=== PATIENT | female | born 1970 | race Two or more races ===

== ENCOUNTER 2024-12-19 08:28 | Emergency (ER) | payer MEDICAID, SELFPAY ==
[2024-12-19 08:52] VITALS: BP 116/44; PULSE 58; RESP 20; TEMP 36.3; O2SAT 98; BMI 20.9
[2024-12-19 09:22] LABS: Amphetamine Screen Urine Not Detected (Not Detect); Barbiturates, Urine Not Detected (Not Detect); Benzodiazepines Screen Urine Not Detected (Not Detect); Buprenorphine Scr Not Detected (Not Detect); Cannabinoid Screen Urine Not Detected (Not Detect); Cocaine Screen Urine Not Detected (Not Detect); Fentanyl, urine Not Detected (Not Detect); Methadone Screen, Urine Positive (Not Detect); Opiate Screen Urine Not Detected (Not Detect); Oxycodone Screen Urine Not Detected (Not Detect); Phencyclidine Screen Urine Not Detected (Not Detect)
--- OUTSIDE RECORDS SUMMARY | 2024-12-19 09:51 | XMS_ITS | Clinical Summary ---
Author Organization [facility] Address [address] [place] [address] Care Team Providers Care Computer System Technician Name Role Phone Velia Jones [facility] Primary Care Provider Source Comments PLEASE NOTE, if this patient is a minor, it may be UNLAWFUL to discuss sensitive information that is contained in these records (such as FAMILY PLANNING, MENTAL HEALTH or SUBSTANCE ABUSE) with the minor patient's parent or other person without the patient's specific authorization.[facility] Allergies Active Allergy Reactions Criticality Noted Date Comments Pollen 02/10/2023 Other reaction(s): unknown Medications ferrous sulfate 325 mg (65 mg iron) EC tabletIndication s:Anemia, unspecified type Take 1 Tablet by mouth once daily with breakfast 90 Tablet 1 4 Active ascorbic acid, vitamin C, (VITAMIN C) 1,000 mg tabletIndication s:Low serum vitamin C Take 1 Tablet by mouth once daily 90 Tablet 3 4 Active ergocalciferol (VITAMIN D-2) 1,250 mcg (50,000 unit) capsuleIndicatio ns:Vitamin D deficiency Take 1 Capsule by mouth once a week 12 Capsule 3 4 Active Hospital, Clinic, or Other Facility Administered Medication Ordered Dose Route Frequency Start Date End Date Status VivitroL 380 mg ER suspension (naltrexone microspheres)Indications: Alcohol use disorder, moderate, dependence ([facility]) 380 mg IM Every 30 days 03/23/2020 Active Active Problems Problem Noted Date Diagnosed Date History of MRSA infection 12/05/2024 COPD (chronic obstructive pulmonary disease) ( C-CMS) 07/05/2023 Scabies 07/05/2023 Opioid use disorder, moderat e, on maintenance therapy ([facility]) 05/15/2020 Cocaine abuse ([facility]) 12/18/2014 Alcohol use disorder, severe ([facility]) 5 Hepatitis C, chronic, genotype 2b, treatment lizzeth ve 12/18/2014 Hx of cholecystectomy Opioid use disorder History of incarceration Alcohol abuse: quit 03/2020 Resolved Problems Problem Noted Date Diagnosed Date Resolved Date Alcohol use disorder, modera te, dependence ([facility]) 01/06/2020 05/15/2020 Opioid use disorder, moderat e, in sustained remission, on maintenance therapy ([facility]) 12/18/2014 05/15/2020 Encounters Date Type Department Care Team Description 12/05/2024 10:00 AM EDT Office Visit [address] [phone] Angeline Hernandez PA-C Hospital discharge follow-up (Primary Dx); Routine screening for STI (sexually transmitted infection); Vitamin D deficiency; History of MRSA infection; Dyslipidemia from Last 3 Months Immunizations Immunization Administration Dates Next Due INFLUENZA, SEASONAL, INJECTABLE 06/21/2011 TDAP 02/10/2023 ZOSTER VACCINE, RECOMBINANT ([facility]) 3 Family History Medical History Relation Name Comments Emphysema Father from smoking Heart Problems Father Diabetes insipidus Mother No Known Problems Sister Relation Name Status Comments Father Mother Sister Social History Tobacco Use Types Packs/Day Years Used Date Smoking Tobacco: Former Cigarettes 1 10 Passive Smoke Exposure: Never Smokeless Tobacco: Never Tobacco Cessation:Counseling Given: No Alcohol Use Standard Drinks/Week Comments Not Currently 0 (1 standard drink = 0.6 oz pur e alcohol) quit 03/2020 Social Connections Answer Date Recorded Connectedness 1 12/05/2024 Financial Resource Strain Answer Date R ecorded Financial Resource Strain 2 2024 Stress Answer Date Recorded Stress 1 12/05/2024 Physical Activity Answer Date Recorded Physical Activity 0 10/20/2021 Food Insecurity Answer Date Recorded Food 1 12/05/2024 Transportation Needs Answer Date Record ed Transportation 1 12/05/2024 Housing Stability Answer Date Recorded Housing 2 12/05/2024 Safety and Environment Answer Date Chris rded Safety 0 10/20/2021 Utilities Answer Date Recorded Utilities 2 12/05/2024 Employment Answer Date Recorded Stress 0 10/20/2021 Comments No Sex and Gender Information Value Date Recorded Sex Assigned at Female 01/07/2020 12:41 PM PDT Legal Sex Female 6:23 AM PDT Gender Identity Female 01/07/2020 12:41 PM PDT Sexual Orientation Choose not to disclose 2022 6:49 AM PDT Sexual Orientation Don't know 02/26/2023 6: 49 AM PDT Last Filed Vital Signs Vital Sign Reading Time Taken Comments Blood Pressure 100/70 12/05/2024 10:04 AM EDT Pulse 83 12/05/2024 10:04 AM EDT Temperature 36.2 ??C (97.1 ??F) 12/05/2024 1 0:04 AM EDT Respiratory Rate 16 12/05/2024 10:0 4 AM EDT Oxygen Saturation 99% 12/05/2024 10: 04 AM EDT Inhaled Oxygen Concentration - - Weight 51.1 kg (112 lb 11.2 oz) 025 10:04 AM EDT Height 157.5 cm (5' 2 ) 12/05/2024 10:0 4 AM EDT Body Mass Index 20.61 12/05/2024 10:04 AM EDT Plan of Treatment Health Maintenance Due Date Last Done Comments Anxiety Screening 1969 Imm-Pneumococcal (1 of 2 - PCV) 1988 CT Colonography 2014 Colonoscopy 2014 Colorectal Cancer Screening 2014 FIT/gFOBT 2014 Fecal DNA 2014 Flexible Sigmoidoscopy 2014 Imm-Zoster, Recombinant (2 of 2) 04/07/2023 02/11/20 23 [id number] ( season) 2024 10/04/2022, 11/19/2021, 04/05/2021, Additional history exists Imm-Influenza (#1) 2024 06/21/2011 Depression Monitoring 03/07/2025 12/05/2024 , 02/10/2023, 10/20/2021, Additional history exists HIV Screening 12/05/2025 12/05/2024, 02/16, 01/07/2020 Hypertension Screening (#1) 12/05/2025 Syphilis Screening 12/05/2025 12/05/2024, 01/07/2020 Tobacco Screening 12/05/2025 12/05/2024 Diabetes Screening 12/06/2027 12/05/2024, 0 10/29/2024, 10/27/2024, Additional history exists Lipid Screening 12/05/2029 12/05/2024 Imm-DTaP/Tdap/Td (2 - Td or Tdap) 02/10/2033 023 Hepatitis B Screening Completed 02/27/2023, 020 Alcohol and Drug Screen Completed 12/06/19, 02/10/2023, 12/20/2019 Imm-Hepatitis A Discontinued Procedures Procedure Name Priority Date/Time Associated Diagnosis Comments OTHER ORDERS SCANNED DOCUMENT 12/16/2024 3:00 AM EDT RPR (DIAGNOSIS) WITH REFLEX TO TITER AND CONFIRMATORY TESTING Routine 12/05/2024 10:38 AM EDT Routine screening for STI (sexually transmitted infection) HIV 1/2 AG & AB W/RFLX (4TH GEN) Routine 12/05/2024 10:38 AM EDT Routine screening for STI (sexually transmitted infection) LIPID PANEL Routine 12/05/2024 10:38 AM EDT Dyslipidemia COMPREHENSIVE METABOLIC PANEL Routine 12/05/2024 10:38 AM EDT History of MRSA infection BLOOD COUNT COMPLETE AUTO&AUTO DIFRNTL WBC Routine 12/05/2024 10:38 AM EDT History of MRSA infection OTHER ORDERS SCANNED DOCUMENT 12/05/2024 3:00 AM EDT OTHER ORDERS SCANNED DOCUMENT 11/12/2024 3:00 AM EST HEALTH HISTORY SCANNED DOCUMENT 10/17/2024 3:00 AM EST HEPATITIS B SURFACE AG, EIA WITH REFLEX CONFIRM Routine 02/27/2023 2:14 PM EDT Chronic hepatitis C without hepatic coma (HCC-CMS) from Last 3 Months or Most Recently Relevant to Health Maintenance Results * OTHER ORDERS SCANNED DOCUMENT (12/16/2024 3:00 AM EDT) Only the most recent of3 resultswithin the time period is included. 12/16/2024 3:00 AM EDT Velia Jones DECISION UNIT RN SCAN OTHER ORDERS Final Result * RPR (DIAGNOSIS) WITH REFLEX TO TITER AND CONFIRMATORY TESTING (12/05/2024 10:38 AM EDT) RPR (DX) W/REFL TITER AND CONFIRMATORY TESTING NON-REACT SADIE NON-REACT SADIE [facility] Comment: No laboratory evidence of syphilis. If recent exposure is suspected, submit a new sample in 2-4 weeks. Serum Blood / Unknown 12/05/2024 1 0:38 AM EDT 12/05/2024 10:39 AM EDT Narrative [facility] - 12/06/2024 12:24 PM EDT FASTING:NO Angeline Hernandez PA-C LAB - BLOOD DRAW Final Resul t [facility] [address] [place] [id number], [facility] [address] [address] * HIV 1/2 AG & AB W/RFLX (4TH GEN) (12/05/2024 10:38 AM EDT) HIV AG/AB, 4TH GEN NON-REAC TIVE NON-REAC TIVE [facility] Comment: HIV-1 antigen and HIV-1/HIV-2 antibodies were not detected. There is no laboratory evidence of HIV infection. PLEASE NOTE: This information has been disclosed to you from records whose confidentiality may be protected by state law. ??If your state requires such protection, then the state law prohibits you from making any further disclosure of the information without the specific written consent of the person to whom it pertains, or as otherwise permitted by law. A general authorization for the release of medical or other information is NOT sufficient for this purpose. ?? For additional information please refer to http://education.EximSoft-Trianz/faq/WQE687 (This link is being provided for informational/ educational purposes only.) The performance of this assay has not been clinically validated in patients less than 2 years old. Blood Blood / Unknown 12/05/2024 1 0:38 AM EDT 12/05/2024 10:39 AM EDT Narrative [employer] [facility] - 12/06/2024 12:24 PM EDT FASTING:NO Angeline Hernandez PA-C LAB - BLOOD DRAW Final Resul t [facility] [address] [address], [facility] [address] [place] [address] * BLOOD COUNT COMPLETE AUTO&AUTO DIFRNTL WBC (12/05/2024 10:38 AM EDT) WHITE BLOOD CELL COUNT 6.3 3.8 - 10.8 Thousand/ uL [facility] RED BLOOD CELL COUNT 4.47 3.80 - 5.10 Million/u L [facility] HEMOGLOBIN 12.7 11.7 - 15.5 g/dL [facility] HEMATOCRIT 38.7 35.0 - 45.0 % [facility] MCV 86.6 80.0 - 100.0 fL [facility] MCH 28.4 27.0 - 33.0 pg [facility] [place] [employer] MCHC 32.8 32.0 - 36.0 g/dL [facility] Comment: For adults, a slight decrease in the calculated MCHC value (in the range of 30 to 32 g/dL) is most likely not clinically significant; however, it should be interpreted with caution in correlation with other red cell parameters and the patient's clinical condition. RDW 14.3 11.0 - 15.0 % [facility] PLATELET COUNT 228 140 - 400 Thousand/ uL [facility] MPV 10.5 7.5 - 12.5 fL [facility] ABSOLUTE NEUTROPHILS 4,171 1,500 - 7,800 cells/uL [facility] ABSOLUTE LYMPHOCYTES 1,342 850 - 3,900 cells/uL [facility] ABSOLUTE MONOCYTES 611 200 - 950 cells/uL [facility] ABSOLUTE EOSINOPHILS 139 15 - 500 cells/uL [facility] ABSOLUTE BASOPHILS 38 0 - 200 cells/uL [facility] NEUTROPHILS PCT 66.2 % [facility] LYMPHOCYTES 21.3 % [facility] MONOCYTES 9.7 % [facility] EOSINOPHILS 2.2 % [facility] BASOPHILS 0.6 % [facility] Blood Blood / Unknown 12/05/2024 1 0:38 AM EDT 12/05/2024 10:39 AM EDT Narrative [employer] [facility] - 12/06/2024 12:24 PM EDT FASTING:NO Angeline Hernandez PA-C LAB - BLOOD DRAW Edited Resu lt - Final [employer] [address] [address], [facility] [address] [address] * (ABNORMAL) LIPID PANEL (12/05/2024 10:38 AM EDT) CHOLESTEROL, TOTAL 154 <200 mg/dL [facility] HDL CHOLESTEROL 47(L) > OR = 50 mg/dL [facility] TRIGLYCERIDES 167(H) <150 mg/dL [facility] LDL-CHOLESTEROL 80 99 mg/dL (calc) [facility] Comment: Reference range: <100 Desirable range <100 mg/dL for primary prevention; ?? <70 mg/dL for patients with CHD or diabetic patients with > or = 2 CHD risk factors. LDL-C is now calculated using the Dwayne-Mercy calculation, which is a validated novel method providing better accuracy than the Friedewald equation in the estimation of LDL-C. Dwayne TELLEZ et al. BHUPINDER. 2013;310(19): 9637-8336 (http://education.Counsyl.Juno [employer]/faq/CBC247) CHOL/HDLC RATIO 3.3 <5.0 (calc) [facility] NON-HDL CHOLESTEROL 107 <130 mg/dL (calc) [facility] Comment: For patients with diabetes plus 1 major ASCVD risk factor, treating to a non-HDL-C goal of <100 mg/dL (LDL-C of <70 mg/dL) is considered a therapeutic option. Blood Blood / Unknown 12/05/2024 1 0:38 AM EDT 12/05/2024 10:39 AM EDT Narrative [employer] [facility] - 12/06/2024 12:24 PM EDT FASTING:NO Angeline Hernandez PA-C LAB - BLOOD DRAW Final Resul t [facility] [address] [address], [facility] [address] [place] [address] * COMPREHENSIVE METABOLIC PANEL (12/05/2024 10:38 AM EDT) GLUCOSE 71 65 - 139 mg/dL [facility] Comment: ?Non-fasting reference interval UREA NITROGEN (BUN) 17 7 - 25 mg/dL [facility] CREATININE (blood) 0.86 0.50 - 1.03 mg/dL [facility] EGFR 80 > OR = 60 mL/min/1. 73m2 [facility] BUN/CREATININE RATIO SEE NOTE: [facility] Comment: ?? Not Reported: BUN and Creatinine are within ?? reference range. ? SODIUM 137 135 - 146 mmol/L [facility] POTASSIUM 4.3 3.5 - 5.3 mmol/L [facility] CHLORIDE 103 98 - 110 mmol/L [facility] CARBON DIOXIDE 23 20 - 32 mmol/L [facility] CALCIUM 9.7 8.6 - 10.4 mg/dL [facility] PROTEIN, TOTAL 7.8 6.1 - 8.1 g/dL [facility] ALBUMIN 4.5 3.6 - 5.1 g/dL [facility] GLOBULIN 3.3 1.9 - 3.7 g/dL (calc) [facility] ALBUMIN/GLOBULI N RATIO 1.4 1.0 - 2.5 (calc) [facility] BILIRUBIN, TOTAL 0.5 0.2 - 1.2 mg/dL [facility] ALKALINE PHOSPHATASE 100 37 - 153 U/L [facility] AST 19 10 - 35 U/L [facility] ALT 10 6 - 29 U/L [facility] Blood Blood / Unknown 12/05/2024 1 0:38 AM EDT 12/05/2024 10:39 AM EDT Narrative [facility] - 12/06/2024 12:24 PM EDT FASTING:NO Angeline Hernandez PA-C LAB - BLOOD DRAW Edited Resu lt - Final Performing Organization Address City/[facility]/ZIP Co de Phone Number [facility] [address] [address], [place] Dress Code [facility] [address] [address] * HEALTH HISTORY SCANNED DOCUMENT (10/17/2024 3:00 AM EST) 10/17/2024 3:00 AM EST [facility] Provider Default SCAN OTHER ORDERS Final Re sult * HEPATITIS B SURFACE AG, EIA WITH REFLEX CONFIRM (02/27/2023 2:14 PM EDT) HEPATITIS B SURFACE ANTIGEN NON-REACT SADIE NON-REACT SADIE [facility] Blood Blood / Unknown 02/27/2023 2 :14 PM EDT 02/27/2023 2:15 PM EDT Narrative [facility] - 03/04/2023 8:43 AM EDT FASTING:NO Erika Paniagua PA-C LAB - BLOOD DRAW Edited Resu lt - Final Performing Organization Address City/[facility] Co de Phone Number [facility] [address] [address], [place] Dress Code [facility]NO[facility] [address] [address] from Last 3 Months or Most Recently Relevant to Health Maintenance Insurance [facility] [employer] [address] ACO Care Teams Computer System Technician Relationship Specialty Start Date End Date Velia Jones FNP [address] [place] [id number] PCP - General Internal Medicine 01/15/24
--- OUTSIDE RECORDS SUMMARY | 2024-12-19 09:51 | XMS_ITS | Patient Health Record ---
Author Organization [facility] Address [address] [place], [place] [id number] Care Team Providers Care Tyre Builder Name Role Phone [facility], Acute Trauma Care [facility] Care Provider Unavailable Marcelle Nunez Unavailable Reason For Referral No Information Encounters Encounter Location Date Provider Diagnosis [facility] [address] [place] [phone] 12/06/2024 Marcelle Nunez [facility] [address] [place] [phone] 12/09/2024 Marcelle Nunez [facility] [address] [place] [phone] 12/16/2024 Marcelle Nunez Plan Of Treatment No Information Insurance Providers Payer Name Payer Address Payer Phone Subscriber Number Group Number Insured Name Patient Relationship to Insured Coverage Start Date Coverage End Date [place] Medicaid Standard [address] [place] [address] [phone] [id number] Sadie Hi Self - patient is the insured
--- OUTSIDE RECORDS SUMMARY | 2024-12-19 09:51 | XMS_ITS | Clinical Summary ---
Author Organization [facility] Address [address] [place] [address] Phone Care Team Providers Care Varnisher Apprentice Name Role Phone Physician, No Pcp Primary Care Provider Unavaila ble Allergies No known active allergies Medications cloNIDine (CATAPRES) 0.1 mg tablet Take 1 tablet (0.1 mg total) by mouth 3 (three) times a day if needed. 4 Active hydrOXYzine HCL (ATARAX) 25 mg tablet Take 1 tablet (25 mg total) by mouth 3 (three) times a day if needed. 5 Active sertraline (ZOLOFT) 25 mg tablet Take 1 tablet (25 mg total) by mouth 1 (one) time each day. 5 Active methadone (DOLOPHINE) 10 mg/mL concentrated solutionIndicatio ns:opioid use disorder Take 7 mL (70 mg total) by mouth 1 (one) time each day. Max Daily Amount: 70 mg 5 Active nicotine (NICODERM CQ) 21 mg/[address] 1 patch on the skin 1 (one) time each day for 14 days. 14 each 5 Active ceFAZolin 2 g in sterile water 20 mL syringe Infuse 2 g into a venous catheter every 8 (eight) hours. 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/2024 Osteomyelitis 10/16/2024 Encounters Date Type Department Care Team Description 12/12/2024 4:52 PM EDT - 12/12/2024 11:59 PM EDT Hospital Encounter [facility] MRI [address] [place] [id number] Septic discitis of thoracic region Discharge Disposition: Home or Self Care 12/10/2024 Telephone Neurosurgery [facility] [address] [place] [address] [place] 10/26/2024 5:16 PM EST - 10/31/2024 4:10 PM EST Hospital Encounter [facility] Urology [address] [place] [phone] Boubacar Valencia MD Seralathan, Manikandan, MD Rasul, Yar M, MD Discharge Disposition: Halfway Facility 10/16/2024 12:47 PM EST - 10/26/2024 4:41 PM EST Hospital Encounter [facility] [address] [place] [phone] Mirza Prado MD Udit, Chitreaka, MD Singh, Gagan D, MD Kumar, Parkash, MD Osteomyelitis (CMS/HCC) (Primary Dx) Discharge Disposition: Short Term Hospital 10/15/2024 10:34 AM EST - 10/16/2024 11:50 AM EST Emergency [facility] Emergency [address] [place] [phone] Apolinar Sheikh MD Millay, Scot A, MD Kenton, Mark A, MD Chest pain of uncertain etiology (Primary Dx); Paraspinal abscess (CMS/HCC); Discitis of cervicothoracic region Discharge Disposition: Short Term Hospital from Last 3 Months Social History Tobacco Use Types Packs/Day Years Used Date Smoking Tobacco: Every Day Cigarettes Smokeless Tobacco: Never Tobacco Cessation:Ready to Q uit: Not Asked; Counseling Given: Not Answered Food Risk Answer Date Recorded Within the past 12 months we worried whether our food would run out before we got money to buy more. Often true 10/17/2024 Within the past 12 months th e food we bought just didn't last and we didn't have money to get more. Often true 10/17/2024 Interpersonal Safety Answer Date Record ed Physical Abuse 10/26/2024 Verbal Abuse 10/26/2024 Comments No Sex and Gender Information Value Date Recorded Sex Assigned at Female 10/15/2024 11:16 AM EST Legal Sex Female 10:45 AM EST Gender Identity Female 10/15/2024 11:16 AM EST Sexual Orientation Not on file Obstetrics History Last Filed Vital Signs Vital Sign Reading Time Taken Comments Blood Pressure 100/63 10/31/2024 4:33 AM EST Pulse 47 10/31/2024 4:33 AM EST Temperature 36 ??C (96.8 ??F) 10/31/2024 4:33 AM EST Respiratory Rate 16 10/31/2024 4:33 AM EST Oxygen Saturation 100% 10/31/2024 4:33 AM EST Inhaled Oxygen Concentration - - Weight 51 kg (112 lb 8 oz) 10/28/2024 2:51 PM ES T Height 157.5 cm (5' 2.01 ) 10/28/2024 2:51 PM ES T Body Mass Index 20.57 10/28/2024 2:51 PM EST Plan of Treatment Upcoming Encounters Date Type Department Care Team (Late st Contact Info) Description 01/17/2025 1:00 PM EDT Office Visit [facility] [address] [place] [address] Elias Flores PA [address] [place] [address] Health Maintenance Due Date Last Done Comments Breast Cancer Screening 1969 Hepatitis A Vaccines (1 of 2 - Risk 2-dose series) 1988 Hepatitis B Vaccines (1 of 3 - 19+ 3-dose series) 1988 Pneumococcal Vaccine: 50+ Years (1 of 2 - PCV) 1988 Pneumococcal Vaccine: Pediatrics (0 to 5 Years) and At-Risk Patients (6 to 64 Years) (1 of 2 - PCV) 1988 Cervical Cancer Screening: Pap Smear 1990 Colorectal Cancer Screening: Colonoscopy 08/22/2022 HIV Screening 08/22/2022 Zoster Vaccines (2 of 2) 04/07/2023 02/10/2023 COVID-19 Vaccine ( season) 2024 10/04/2022, 11/19/2021, 04/05/2021, Additional history exists Influenza Vaccine (Season Ended) 2025 06/21/2011 Social Influencers of Health Screening 10/17/2025 10/17/2024 Depression Screening 12/05/2025 12/05/2024 Cholesterol Screening (Lipid Panel) 12/05/2029 12/05/2024, 12/05/2024 DTaP,Tdap,and Td Vaccines (2 - Td or Tdap) 02/10/2033 02/10/2023 Hepatitis C Screening Completed 02/27/2023, 023 HIB Vaccines Aged Out No longer eligi ble based on patient's age to complete this topic HPV Vaccines Aged Out No longer eligi ble based on patient's age to complete this topic IPV Vaccines Aged Out No longer eligi ble based on patient's age to complete this topic MMR Vaccines Aged Out No longer eligi ble based on patient's age to complete this topic Meningococcal ACWY Vaccine Aged Out N o longer eligible based on patient's age to complete this topic Meningococcal B Vacine Aged Out No lo nger eligible based on patient's age to complete this topic RSV Immunization Patients Under 20 months Aged Out No longer eligible based on patient's age to complete this topic Varicella Vaccines Aged Out No longer eligible based on patient's age to complete this topic Interventions Community Resource Recommendations Community Resource Services Recommended Domains Addressed Status Status Reason/Outcome Date/Time 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 Food Pantry Food Risk 10/17/2024 10:46 AM EST [facility] [employer] Food Pantry Food Risk 10/17/2024 10:46 AM EST from Last 12 Months Procedures Procedure Name Priority Date/Time Associated Diagnosis Comments MR THORACIC SPINE WO AND W CONTRAST Routine 12/12/2024 7:56 PM EDT Septic discitis of thoracic region BASIC METABOLIC PANEL Routine 10/29/2024 5:50 AM EST CBC WITH AUTO DIFFERENTIAL Routine 10/27/2024 5:54 AM EST CBC AND DIFFERENTIAL Routine 10/27/2024 5:54 AM EST MAGNESIUM Routine 10/27/2024 5:54 AM EST BASIC METABOLIC PANEL Routine 10/27/2024 5:54 AM EST POCT GLUCOSE BLOOD Routine 10/21/2024 5: 35 PM EST POCT GLUCOSE BLOOD Routine 10/21/2024 12 :02 PM EST POCT GLUCOSE BLOOD Routine 10/21/2024 8: 11 AM EST CBC WITH AUTO DIFFERENTIAL Routine 10/20/2024 5:49 AM EST COMPREHENSIVE METABOLIC PANEL Routine 10/20/2024 5:49 AM EST MAGNESIUM Routine 10/20/2024 5:49 AM EST CBC AND DIFFERENTIAL Routine 10/20/2024 5:49 AM EST CBC WITH AUTO DIFFERENTIAL Routine 10/19/2024 7:53 AM EST COMPREHENSIVE METABOLIC PANEL Routine 10/19/2024 7:53 AM EST MAGNESIUM Routine 10/19/2024 7:53 AM EST CBC AND DIFFERENTIAL Routine 10/19/2024 7:53 AM EST VANCOMYCIN, TROUGH Timed 10/18/2024 8: 09 PM EST XR CHEST 1 VIEW (STATISTICS) Routine 10/18/2024 6:[address] ASP ABSCESS/HEMATOMA/BULL A/CYST Routine 10/18/2024 4:50 PM EST CULTURE BODY FLUID WITH GRAM STAIN Routine 10/18/2024 4:30 PM EST DRUG ABUSE SCREEN 9A PANEL, URINE Routine 10/18/2024 1:02 PM EST CBC WITH AUTO DIFFERENTIAL Routine 10/18/2024 6:59 AM EST COMPREHENSIVE METABOLIC PANEL Routine 10/18/2024 6:59 AM EST MAGNESIUM Routine 10/18/2024 6:59 AM EST CBC AND DIFFERENTIAL Routine 10/18/2024 6:59 AM EST CBC WITH AUTO DIFFERENTIAL Routine 10/17/2024 6:44 AM EST COMPREHENSIVE METABOLIC PANEL Routine 10/17/2024 6:44 AM EST MAGNESIUM Routine 10/17/2024 6:44 AM EST CBC AND DIFFERENTIAL Routine 10/17/2024 6:44 AM EST POCT GLUCOSE BLOOD Routine 10/16/2024 11 :53 PM EST LACTATE, WITH REFLEX Routine 10/16/2024 3:21 PM EST PROCALCITONIN Routine 10/16/2024 3:21 PM EST CBC WITH AUTO DIFFERENTIAL Routine 10/16/2024 3:21 PM EST COMPREHENSIVE METABOLIC PANEL Routine 10/16/2024 3:21 PM EST PROTHROMBIN TIME WITH INR Routine 10/16/2024 3:21 PM EST MAGNESIUM Routine 10/16/2024 3:21 PM EST CBC AND DIFFERENTIAL Routine 10/16/2024 3:21 PM EST CULTURE BLOOD STAT 10/16/2024 3:21 PM EST CULTURE BLOOD STAT 10/16/2024 3:21 PM EST MR THORACIC SPINE WO AND W CONTRAST STAT 10/15/2024 5:47 PM EST MR CERVICAL SPINE WO AND W CONTRAST STAT 10/15/2024 5:[address] ANGIO CHEST WO AND/OR W CONTRAST STAT 10/15/2024 1:55 PM EST Chest pain of uncertain etiology XR CHEST 2 VIEWS STAT 10/15/2024 12:2 9 PM EST DRUG ABUSE SCREEN 8A PANEL, URINE STAT 10/15/2024 11:51 AM EST C-REACTIVE PROTEIN STAT Add-on 10/15/2024 11 :34 AM EST SEDIMENTATION RATE STAT Add-on 10/15/2024 11 :34 AM EST CBC WITH AUTO DIFFERENTIAL STAT 10/15/2024 11:34 AM EST D-DIMER STAT 10/15/2024 11:34 AM EST PROTHROMBIN TIME WITH INR STAT 10/15/2024 11:34 AM EST TROPONIN I HIGH SENSITIVITY STAT 10/15/2024 11:34 AM EST COMPREHENSIVE METABOLIC PANEL STAT 10/15/2024 11:34 AM EST CBC AND DIFFERENTIAL STAT 10/15/2024 11:34 AM EST ECG 12-LEAD STAT 10/15/2024 10:52 AM EST OH CRITICAL CARE 30-74 MINUTES Routine 10/15/2024 10:30 AM EST ECG ANNOTATED 10/15/2024 from Last 3 Months Results * MR Thoracic Spine wo and w Contrast (12/12/2024 7:56 PM EDT) Only the most recent of2 resultswithin the time period is included. Anatomical Region Laterality Modality T-spine, Spine Magnetic Resonan ce 12/17/2024 5:50 PM EDT Impressions 12/17/2024 6:43 PM EDT Expected evolution of T4-5 osteomyelitis/discitis with resolved right paravertebral abscess and decreased ventral epidural phlegmon. ??No significant spinal canal stenosis or cord signal abnormality. -------- FINAL REPORT -------- Dictated By: MEHUL SHARMA Dictated Date: 12/17/2024 17:50 ET Assigned Physician: MEHUL SHARMA Reviewed and Electronically Signed By: MEHUL SHARMA Signed Date: 12/17/2024 18:43 ET Workstation ID: [id number] Transcribed By: Self Edit Transcribed Date: 12/17/2024 17:50 ET Narrative 12/17/2024 6:43 PM EDT PROCEDURE: Thoracic spine MRI INDICATION: Osteomyelitis/discitis, abscess TECHNIQUE: Multiplanar, multisequence MRI of the thoracic spine without and with contrast. ??10 mL Dotarem injected intravenously from a 15 mL vial with the remainder discarded. COMPARISON: ??10/15/2024 FINDINGS: Thoracic alignment is unchanged. Expected evolution of osteomyelitis/discitis at T4-5 with destruction of the disc and adjacent endplates. ??Right paravertebral abscess at T4-5 has resolved. ??Decreased thin epidural enhancement posterior to T4-5 compatible with ventral epidural phlegmon. ??No new paravertebral or epidural abscess. Mild multilevel degenerative loss of normal disc height and signal throughout the thoracic spine. ??No significant disc protrusion or mass effect upon the cord. Mild multilevel degenerative facet arthritis, most pronounced at T11-12. Thoracic cord is normal in signal and morphology. ??No abnormal enhancement within the spinal canal. Visualized intrathoracic structures are within normal limits. Procedure Note Mehul Sharma MD - 12/17/2024 PROCEDURE: Thoracic spine MRI INDICATION: Osteomyelitis/discitis, abscess TECHNIQUE: Multiplanar, multisequence MRI of the thoracic spine withoutand with contrast. 10 mL Dotarem injected intravenously from a 15 mL vialwith the remainder discarded. COMPARISON: 10/15/2024 FINDINGS: Thoracic alignment is unchanged. Expected evolution of osteomyelitis/discitis at T4-5 with destruction ofthe disc and adjacent endplates. Right paravertebral abscess at T4-5 hasresolved. Decreased thin epidural enhancement posterior to T4-5compatible with ventral epidural phlegmon. No new paravertebral orepidural abscess. Mild multilevel degenerative loss of normal disc height and signalthroughout the thoracic spine. No significant disc protrusion or masseffect upon the cord. Mild multilevel degenerative facet arthritis, most pronounced at T11-12. Thoracic cord is normal in signal and morphology. No abnormal enhancementwithin the spinal canal. Visualized intrathoracic structures are within normal limits. IMPRESSION: Expected evolution of T4-5 osteomyelitis/discitis with resolved rightparavertebral abscess and decreased ventral epidural phlegmon. Nosignificant spinal canal stenosis or cord signal abnormality. -------- FINAL REPORT -------- Dictated By: MEHUL SHARMA Dictated Date: 12/17/2024 17:50 ET Assigned Physician: MEHUL SHARMA Reviewed and Electronically Signed By: MEHUL SHARMA Signed Date: 12/17/2024 18:43 ET Workstation ID: [id number] Transcribed By: Self Edit Transcribed Date: 12/17/2024 17:50 ET Cici Jimenez MD [facility] MRI PROCEDURES Final Result * (ABNORMAL) Basic metabolic panel (10/29/2024 5:50 AM EST) Only the most recent of2 resultswithin the time period is included. Sodium 137 133 - 145 mmol/L LAB CHEMISTRY METHOD 10/29/2024 7:55 AM EST [facility] Potassium 4.4 3.5 - 5.5 mmol/L LAB CHEMISTRY METHOD 10/29/2024 7:55 AM EST [facility] Chloride 102 96 - 110 mmol/L LAB CHEMISTRY METHOD 10/29/2024 7:55 AM EST [facility] CO2 32 21 - 32 mmol/L LAB CHEMISTRY METHOD 10/29/2024 7:55 AM [facility] Anion Gap 3 3 - 11 LAB CHEMISTRY METHOD 10/29/2024 7:55 AM [facility] Glucose 95 70 - 100 mg/dL LAB CHEMISTRY METHOD 10/29/2024 7:55 AM [facility] BUN 26(H) 5 - 25 mg/dL LAB CHEMISTRY METHOD 10/29/2024 7:55 AM [facility] Creatinine 0.89 0.50 - 1.10 mg/dL LAB CHEMISTRY METHOD 10/29/2024 7:55 AM [facility] eGFR 77 >=60 mL/min/1. 73m2 LAB CHEMISTRY METHOD 10/29/2024 7:55 AM [facility] Comment:Calculation based on the??Chronic Kidney Disease Epidemiology Collaboration (CKD-EPI) equation refit??without adjustment for race. BUN/Creatinine Ratio 29.2 LAB CHEMISTRY METHOD 10/29/2024 7:55 AM [facility] Calcium 9.3 8.5 - 10.5 mg/dL LAB CHEMISTRY METHOD 10/29/2024 7:55 AM [facility] Blood Venous blood specimen / Unknown Venipuncture / Unknown 10/29/2024 5:50 AM EST 10/29/2024 7:20 AM EST Jigar CALIX LAB BLOOD ORDERABLES Chanda foster Result [facility] [address] [place] [address], * (ABNORMAL) CBC auto differential (10/27/2024 5:54 AM EST) Only the most recent of7 resultswithin the time period is included. WBC 4.8 4.8 - 10.8 K/mcL LAB HEMETOLOGY METHOD 10/27/2024 7:34 AM EST [facility] RBC 3.70(L) 3.80 - 4.80 M/mcL LAB HEMETOLOGY METHOD 10/27/2024 7:34 AM [facility] Hemoglobin 10.1(L) 11.5 - 16.0 g/dL LAB HEMETOLOGY METHOD 10/27/2024 7:34 AM [facility] Hematocrit 32.8(L) 35.0 - 47.0 % LAB HEMETOLOGY METHOD 10/27/2024 7:34 AM [facility] MCV 88.9 79.0 - 98.0 FL LAB HEMETOLOGY METHOD 10/27/2024 7:34 AM [facility] MCH 27.4 27.0 - 32.0 pcg LAB HEMETOLOGY METHOD 10/27/2024 7:34 AM [facility] MCHC 30.8(L) 32.0 - 37.0 g/dL LAB HEMETOLOGY METHOD 10/27/2024 7:34 AM [facility] RDW 14.0 11.0 - 15.0 % LAB HEMETOLOGY METHOD 10/27/2024 7:34 AM [facility] Platelets 256 130 - 400 K/mcL LAB HEMETOLOGY METHOD 10/27/2024 7:34 AM [facility] MPV 10.4 7.0 - 11.0 FL LAB HEMETOLOGY METHOD 10/27/2024 7:34 AM [facility] NRBC 0.0 <1.0 % LAB HEMETOLOGY METHOD 10/27/2024 7:34 AM [facility] NRBC Absolute 0.00 <0.10 K/mcL LAB HEMETOLOGY METHOD 10/27/2024 7:34 AM [facility] Neutrophils Relative 49.0 % LAB HEMETOLOGY METHOD 10/27/2024 7:34 AM [facility] Lymphocytes Relative 29.6 % LAB HEMETOLOGY METHOD 10/27/2024 7:34 AM [facility] Monocytes Relative 17.0 % LAB HEMETOLOGY METHOD 10/27/2024 7:34 AM [facility] Eosinophils Relative 2.9 % LAB HEMETOLOGY METHOD 10/27/2024 7:34 AM [facility] Basophils Relative 0.4 % LAB HEMETOLOGY METHOD 10/27/2024 7:34 AM [facility] Immature Granulocytes Relative 1.1 % LAB HEMETOLOGY METHOD 10/27/2024 7:34 AM [facility] Neutrophils Absolute 2.33 1.50 - 7.00 K/mcL LAB HEMETOLOGY METHOD 10/27/2024 7:34 AM [facility] Lymphocytes Absolute 1.41 1.00 - 5.00 K/mcL LAB HEMETOLOGY METHOD 10/27/2024 7:34 AM [facility] Monocytes Absolute 0.81 0.20 - 1.00 K/mcL LAB HEMETOLOGY METHOD 10/27/2024 7:34 AM [facility] Eosinophils Absolute 0.14 0.00 - 0.50 K/mcL LAB HEMETOLOGY METHOD 10/27/2024 7:34 AM [facility] Basophils Absolute 0.02 0.00 - 0.20 K/mcL LAB HEMETOLOGY METHOD 10/27/2024 7:34 AM [facility] Immature Granulocytes Absolute 0.05(H) 0.00 - 0.03 K/mcL LAB HEMETOLOGY METHOD 10/27/2024 7:34 AM [facility] Blood Venous blood specimen / Unknown Venipuncture / Unknown 10/27/2024 5:54 AM EST 10/27/2024 6:58 AM EST Boubacar Valencia MD LAB BLOOD ORDERABLES Final Re sult [facility] [address] [place] [address], [place] [phone] * Magnesium (10/27/2024 5:54 AM EST) Only the most recent of6 resultswithin the time period is included. [facility] Magnesium 2.2 1.9 - 2.6 mg/dL LAB CHEMISTRY METHOD 10/27/2024 8:12 AM EST [facility] Blood Venous blood specimen / Unknown Venipuncture / Unknown 10/27/2024 5:54 AM EST 10/27/2024 6:59 AM EST us Boubacar Valencia MD LAB BLOOD ORDERABLES Final Re sult Performing Organization Address [facility] de Phone Number [facility] [address] [place] [address], [place] [phone] * POCT Glucose, blood (10/21/2024 5:35 PM EST) Only the most recent of4 resultswithin the time period is included. [facility] Glucose POCT 102 70 - 199 mg/dL 10/21/2024 5:35 PM EST [facility] Comment: Fasting Reference Range: ? 70-99 mg/dL Non-Fasting Reference Range: 70-199 mg/dL Blood Capillary blood specimen / Unknown 10/21/2024 5:35 PM EST 10/21/2024 5:36 PM EST us Rajendra White MD LAB POINT OF CARE TE ST DOCKED DEVICE UNSOLICITED RESULTS Final Result Performing Organization Address [facility] Co de Phone Number [facility] [address] [place] [address], [place] [phone] * (ABNORMAL) Comprehensive metabolic panel (10/20/2024 5:49 AM EST) Only the most recent of6 resultswithin the time period is included. [facility] Sodium 137 135 - 145 mmol/L LAB CHEMISTRY METHOD 10/20/2024 7:03 AM [facility] Potassium 4.1 3.5 - 5.1 mmol/L LAB CHEMISTRY METHOD 10/20/2024 7:03 AM [facility] Chloride 105 98 - 107 mmol/L LAB CHEMISTRY METHOD 10/20/2024 7:03 AM [facility] CO2 23(L) 24 - 32 mmol/L LAB CHEMISTRY METHOD 10/20/2024 7:03 AM [facility] Anion Gap 9 5 - 14 LAB CHEMISTRY METHOD 10/20/2024 7:03 AM [facility] Glucose 81 70 - 99 mg/dL LAB CHEMISTRY METHOD 10/20/2024 7:03 AM [facility] BUN 19(H) 7 - 17 mg/dL LAB CHEMISTRY METHOD 10/20/2024 7:03 AM [facility] Creatinine 0.70 0.50 - 1.00 mg/dL LAB CHEMISTRY METHOD 10/20/2024 7:03 AM [facility] eGFR 103 >=60 mL/min/1. 73m2 LAB CHEMISTRY METHOD 10/20/2024 7:03 AM [facility] Comment:Calculation based on the??Chronic Kidney Disease Epidemiology Collaboration (CKD-EPI) equation refit??without adjustment for race. BUN/Creatinine Ratio 27.1(H) 12.0 - 20.0 LAB CHEMISTRY METHOD 10/20/2024 7:03 AM [facility] Calcium 9.2 8.4 - 10.2 mg/dL LAB CHEMISTRY METHOD 10/20/2024 7:03 AM [facility] AST (SGOT) 14 5 - 40 unit/L LAB CHEMISTRY METHOD 10/20/2024 7:03 AM [facility] ALT (SGPT) 5(L) 7 - 52 unit/L LAB CHEMISTRY METHOD 10/20/2024 7:03 AM EST [facility] Alkaline Phosphatase 88 34 - 104 unit/L LAB CHEMISTRY METHOD 10/20/2024 7:03 AM [facility] Total Protein 7.2 6.4 - 8.5 g/dL LAB CHEMISTRY METHOD 10/20/2024 7:03 AM [facility] Albumin 3.4(L) 3.5 - 5.0 g/dL LAB CHEMISTRY METHOD 10/20/2024 7:03 AM [facility] Total Bilirubin 0.3 0.3 - 1.0 mg/dL LAB CHEMISTRY METHOD 10/20/2024 7:03 AM [facility] Blood Venous blood specimen / Unknown Venipuncture / Unknown 10/20/2024 5:49 AM EST 10/20/2024 6:10 AM EST Michelet Riley MD LAB BLOOD ORDERABLES Final Res ult [facility] [address] [place] [address], [place] [phone] * Vancomycin, trough Please draw trough level 30 minutes before vancomycin dose, scheduled for administration at 21:00. (10/18/2024 8:09 PM EST) [facility] Signature Vancomycin Trough 12.3 10.0 - 20.0 mcg/mL LAB CHEMISTRY METHOD 10/18/2024 9:01 PM EST [facility] Blood Venous blood specimen / Unknown Venipuncture / Unknown 10/18/2024 8:09 PM EST 10/18/2024 8:28 PM EST us Michelet Riley MD LAB BLOOD ORDERABLES Final Res ult [facility] [address] [place] [address], [place] [phone] * XR Chest 1 View (Statistics) (10/18/2024 6:41 PM EST) Anatomical Region Laterality Modality Body Radiographic Cara ging 10/18/2024 9:40 PM EST Impressions 10/18/2024 9:40 PM EST 1. No acute process in the chest. Report reviewed and signed by : Dr. Christopher Burton on 10/18/2024 9:40 PM. Workstation Name - [id number] -------- FINAL REPORT -------- Dictated By: Christopher Burton Dictated Date: 10/18/2024 21:40 ET Assigned Physician: Christopher Burton Reviewed and Electronically Signed By: Christopher Burton Signed Date: 10/18/2024 21:40 ET Workstation ID: [id number] Transcribed By: Self Edit Transcribed Date: 10/18/2024 21:40 ET Narrative 10/18/2024 9:40 PM EST RADIOGRAPH OF THE CHEST CLINICAL HISTORY: Discitis, suspected or evaluation of status post right thoracic paravertebral aspiration, evalute potential ptx TECHNIQUE: Frontal view of the chest. COMPARISON: 10/15/2024 FINDINGS: Normal sized heart. Aortic atherosclerosis. No consolidation. No effusion. Negative for pneumothorax. Benign calcified granuloma in the left lung. Negative for acute osseous abnormality, lytic or blastic lesion. Procedure Note Christopher Burton MD - 10/18/2024 RADIOGRAPH OF THE CHEST CLINICAL HISTORY: Discitis, suspected or evaluation of status post right thoracic paravertebral aspiration, evalute potentialptx TECHNIQUE: Frontal view of the chest. COMPARISON: 10/15/2024 FINDINGS: Normal sized heart. Aortic atherosclerosis. No consolidation. No effusion. Negative for pneumothorax. Benign calcified granuloma in the left lung. Negative for acute osseous abnormality, lytic or blastic lesion. IMPRESSION: 1. No acute process in the chest. Report reviewed and signed by : Dr. Christopher Burton on 10/18/2024 9:40 PM.Workstation Name - [id number] -------- FINAL REPORT -------- Dictated By: Christopher Burton Dictated Date: 10/18/2024 21:40 ET Assigned Physician: Christopher Burton Reviewed and Electronically Signed By: Christopher Burton Signed Date: 10/18/2024 21:40 ET Workstation ID: [id number] Transcribed By: Self Edit Transcribed Date: 10/18/2024 21:40 ET Ramirez Gomes MD IMG XR PROCEDURES Final Result * CT Asp Abscess/Hematoma/Bulla/Cyst (10/18/2024 4:50 PM EST) Anatomical Region Laterality Modality Computed Tomogra phy 10/20/2024 6:45 PM EST Impressions 10/20/2024 6:[address] guided aspiration of right paraspinous collection at T4-5 yielding approximately 1 mL of purulent fluid which was sent for Gram stain, culture and sensitivity. Report reviewed and signed by : Dr. Ramirez Gomes on 10/20/2024 6:48 PM. Workstation Name - [id number] -------- FINAL REPORT -------- Dictated By: Ramirez Gomes Dictated Date: 10/20/2024 18:45 ET Assigned Physician: Ramirez Gomes Reviewed and Electronically Signed By: Ramirez Gomes Signed Date: 10/20/2024 18:48 ET Workstation ID: [id number] Transcribed By: Self Edit Transcribed Date: 10/20/2024 18:45 ET Narrative 10/20/2024 6:[address] GUIDED ASPIRATION OF A RIGHT T4-5 PARASPINOUS COLLECTION WITHOUT INTRAVENOUS CONTRAST HISTORY: OTHER aspiration of paravertebral collection in thoracic spine. Discitis and osteomyelitis at T4-5 with right paraspinous collection. ??Blood culture negative. ??Need isolation of the organism. TECHNIQUE: The risks, benefits, and alternatives of the procedure were fully explained to the patient. The patient understood, all questions were answered and signed informed consent was obtained. The patient was placed prone on the CT table and preliminary images of the T4-5 level were obtained at 5 mm intervals. A site was marked on the skin and prepped sterilely. 1% Lidocaine was used for local anesthesia. Intravenous conscious sedation was utilized with radiology nursing supervision. The patient received 0.5 milligrams of IV Versed and 25 micrograms of IV Fentanyl. The sedation was administered during a time of [address] guidance, a 22-gauge 9 cm Chiba needle was advanced into the right paraspinous collection using a pathway to avoid entering the aerated lung. ??There was a very narrow window. ??Once this was within the right paraspinous collection aspiration was performed with yield of approximately 1 mL of purulent appearing fluid. ??This was placed in a culture vial and sent to the lab for Gram stain, culture and sensitivity. ??The needle was removed and a sterile dressing applied. A repeat CT image of the chest demonstrated no evidence for pneumothorax after needle removal. The patient tolerated the procedure well and left the department without immediate post procedure complication. 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 Need isolation of the organism. TECHNIQUE: The risks, benefits, and alternatives of the procedure werefully explained to the patient. The patient understood, all questions wereanswered and signed informed consent was obtained. The patient was placed prone on the CT table and preliminary images of theT4-5 level were obtained at 5 mm intervals. A site was marked on the skinand prepped sterilely. 1% Lidocaine was used for local anesthesia.Intravenous conscious sedation was utilized with radiology nursingsupervision. The patient received 0.5 milligrams of IV Versed and 25micrograms of IV Fentanyl. The sedation was administered during a time of[address] guidance, a 22-gauge 9 cm Chiba needle was advancedinto the right paraspinous collection using a pathway to avoid enteringthe aerated lung. There was a very narrow window. Once this was withinthe right paraspinous collection aspiration was performed with yield ofapproximately 1 mL of purulent appearing fluid. This was placed in aculture vial and sent to the lab for Gram stain, culture and sensitivity.The needle was removed and a sterile dressing applied. A repeat CT imageof the chest demonstrated no evidence for pneumothorax after needleremoval. The patient tolerated the procedure well and left the departmentwithout immediate post procedure complication. IMPRESSION: CT guided aspiration of right paraspinous collection at T4-5 yieldingapproximately 1 mL of purulent fluid which was sent for Gram stain,culture and sensitivity. Report reviewed and signed by : Dr. Ramirez Gomes on 10/20/2024 6:48 PM.Workstation Name - [id number] -------- FINAL REPORT -------- Dictated By: Ramirez Gomes Dictated Date: 10/20/2024 18:45 ET Assigned Physician: Ramirez Gomes Reviewed and Electronically Signed By: Ramirez Gomes Signed Date: 10/20/2024 18:48 ET Workstation ID: [id number] Transcribed By: Self Edit Transcribed Date: 10/20/2024 18:45 ET Maksim [facility] [facility] PROCEDURES Final Result * (ABNORMAL) Culture body fluid with gram stain (10/18/2024 4:30 PM EST) Fluid Culture 1+ Methicillin-Sensi tive Staphylococcus aureus(A) INOCENCIA 10/23/2024 1:33 PM EST [facility] Comment: The organism value for this result has been updated. These results have been appended to the previously preliminary verified report. Edited result: Previously reported as Staphylococcus aureus on 10/20/2024 at 1405 EST. Gram Stain Result Many WBCs present(A) 10/23/2024 1:33 PM EST [facility] Gram Stain Result Few Gram positive cocci(A) 10/23/2024 1:33 PM EST [facility] Unspecified Body Fluid Thoracic structure / Unknown Non-blood Collection / Unknown 10/18/2024 4:30 PM EST 10/18/2024 4:34 PM EST Narrative [facility] - 10/23/2024 1:33 PM EST No Anaerobes isolated. Organism Antibiotic Method Susceptibility Methicillin-Sensitive Staphylococcus aureus Clindamycin INOCENCIA 0.25 ug/ml: Susceptible Methicillin-Sensitive Staphylococcus aureus Doxycycline INOCENCIA <=0.5 ug/ml: Susceptible Methicillin-Sensitive Staphylococcus aureus Erythromycin INOCENCIA <=0.25 ug/ml: Susceptible Methicillin-Sensitive Staphylococcus aureus Oxacillin INOCENCIA <=0.25 ug/ml: Susceptible Methicillin-Sensitive Staphylococcus aureus Trimethoprim/Sulfamethoxa zole INOCENCIA <=10 ug/ml: Susceptible Methicillin-Sensitive Staphylococcus aureus Vancomycin INOCENCIA 1 ug/ml: Susceptible Ramirez Gomes MD LAB MICROBIOLOGY - GENERAL ORDER KIERA Final Result [facility] [address] [place] [address], [place] [phone] * (ABNORMAL) Drug abuse screen 9a panel, urine (10/18/2024 1:02 PM EST) [facility] Amphetamine Screen, Ur Negative Negative LAB CHEMISTRY METHOD 10/18/2024 3:27 PM EST [facility] Barbiturate Screen, Ur Negative Negative LAB CHEMISTRY METHOD 10/18/2024 3:27 PM [facility] Benzodiazepine Screen, Ur Negative Negative LAB CHEMISTRY METHOD 10/18/2024 3:27 PM EST [facility] Comment:Method not sensitive to Lorazepam and derivatives. Include clinical correlation in test interpretation. Opiate Screen, Ur Negative Negative LAB CHEMISTRY METHOD 10/18/2024 3:27 PM EST [facility] Cannabinoid (THC) Screen, Ur Negative Negative LAB CHEMISTRY METHOD 10/18/2024 3:27 PM EST [facility] Benzoylecgonine, Ur Negative Negative LAB CHEMISTRY METHOD 10/18/2024 3:27 PM [facility] Fentanyl, Ur Positive(A) Negative LAB CHEMISTRY METHOD 10/18/2024 3:27 PM EST [facility] Oxycodone Screen, Ur Negative Negative LAB CHEMISTRY METHOD 10/18/2024 3:27 PM [facility] PCP Scrn, Ur Negative Negative LAB CHEMISTRY METHOD 10/18/2024 3:27 PM [facility] Urine Urine specimen obtained by clean catch procedure / Unknown Non-blood Collection / Unknown 10/18/2024 1:02 PM EST 10/18/2024 1:20 PM EST Narrative [facility] - 10/18/2024 3:27 PM EST URINE DRUGS OF ABUSE CUTOFF CONCENTRATIONS: Amphetamines ?1000 ng/mL Barbituates ?200 ng/mL Benzodiazepine ?? 200 ng/mL Cannabinoids ?50 ng/mL Benzoylecgonine ??300 ng/mL Opiates ?300 ng/mL PCP ? 25 ng/mL Rajendra White MD LAB URINE ORDERABLES Final Resu lt Performing Organization Address City/[facility]/ZIP Co de Phone Number [facility] [address] [place] [address], [place] [phone] * Lactate, with reflex (10/16/2024 3:21 PM EST) LACTIC ACID 1.5 0.5 - 2.2 mmol/L LAB BLOOD GAS METHOD 10/16/2024 4:02 PM EST [facility] Blood Venous blood specimen / Unknown Venipuncture / Unknown 10/16/2024 3:21 PM EST 10/16/2024 3:47 PM EST Michelet Riley MD LAB BLOOD ORDERABLES Final Res ult Performing Organization Address City/[facility]/ZIP Co de Phone Number [facility] [address] [place] [address], [place] [phone] * Procalcitonin (10/16/2024 3:21 PM EST) Procalcitonin <0.05 <=0.05 ng/mL LAB CHEMISTRY METHOD 10/16/2024 6:38 PM EST [facility] Blood Venous blood specimen / Unknown Venipuncture / Unknown 10/16/2024 3:21 PM EST 10/16/2024 3:50 PM EST Narrative [facility] - 10/16/2024 6:38 PM EST Procalcitonin levels above 2.0 ng/mL represent a high risk of progression to severe sepsis and/or septic shock. Note that levels below 0.50 ng/mL do not exclude an infection, and increased levels can occur without infection. Procalcitonin levels should be interpreted in the context of other clinical and laboratory findings. Michelet Riley MD LAB BLOOD ORDERABLES Final Res ult Performing Organization Address City/[facility]/ZIP Co de Phone Number [facility] [address] [place] [address], [place] [phone] * Blood Culture, Peripheral Draw #2 (10/16/2024 3:21 PM EST) Only the most recent of2 resultswithin the time period is included. Culture, Blood No growth at 5 days 10/21/2024 5:01 PM EST [facility] Blood Venous blood specimen / Unknown Venipuncture / Unknown 10/16/2024 3:21 PM EST 10/16/2024 3:50 PM EST Michelet Riley MD LAB MICROBIOLOGY - GENERAL ORD ERABLES Final Result Performing Organization Address [facility] Co de Phone Number [facility] [address] [place] [address], [place] [phone] * Prothrombin time with INR (10/16/2024 3:21 PM EST) Only the most recent of2 resultswithin the time period is included. Protime 12.6 10.5 - 13.3 sec LAB COAGULATION METHOD 10/16/2024 4:17 PM EST [facility] INR 1.1 0.8 - 1.1 LAB COAGULATION METHOD 10/16/2024 4:17 PM EST [facility] Blood Venous blood specimen / Unknown Venipuncture / Unknown 10/16/2024 3:21 PM EST 10/16/2024 3:50 PM EST Narrative [facility] - 10/16/2024 4:17 PM EST Std. Therapy ?2.0-3.0 INR High Dose Therapy 3.0-4.5 INR Ranges may vary depending on clinical indications and protocol. us Michelet Riley MD LAB BLOOD ORDERABLES Final Res ult [facility] [address] [place] [address], [place] [phone] * MR Cervical Spine wo and w Contrast (10/15/2024 5:47 PM EST) Anatomical Region Laterality Modality C-spine, Spine Magnetic Resonan ce 10/15/2024 7:03 PM EST Impressions 10/15/2024 7:03 PM EST Impression: 1. No evidence of cervical discitis/osteomyelitis. Please see same day MRI thoracic spine report for evaluation of the discitis/osteomyelitis at T4-T5 level. This document has been electronically signed by: Isiah Mcintyre MD on 10/15/2024 19:03:36 Narrative 10/15/2024 7:03 PM EST Exam: MRI cervical spine, including gadolinium enhanced imaging. Comparison: Same-day MRI thoracic spine. Findings: Cervical vertebral body heights and alignment are maintained. There is disc desiccation, slightly more prominent at C5-6 level. Signal intensity within the cervical cord appears maintained. Axial images reveal some left uncovertebral joint hypertrophy at C4-5 with left foraminal stenoses (6; 14), posterior disc-osteophyte complex at C5-6 with mild central canal stenoses (6; 19). No other significant compromise of the thecal sac or spinal canal. No MR evidence of discitis/osteomyelitis at cervical level. Partially imaged discitis/osteomyelitis at T4-T5, please see same day MRI thoracic spine report. No abnormal epidural or paraspinal enhancement. Procedure Note Isiah Mcintyre MD - 10/15/2024 Exam: MRI cervical spine, including gadolinium enhanced imaging. Comparison: Same-day MRI thoracic spine. Findings: Cervical vertebral body heights and alignment are maintained. There is disc desiccation, slightly more prominent at C5-6 level. Signal intensity within the cervical cord appears maintained. Axial images reveal some left uncovertebral joint hypertrophy at C4-5with left foraminal stenoses (6; 14), posterior disc-osteophyte complex atC5-6 with mild central canal stenoses (6; 19). No other significantcompromise of the thecal sac or spinal canal. No MR evidence of discitis/osteomyelitis at cervical level. Partially imaged discitis/osteomyelitis at T4-T5, please see same day MRI thoracic spine report. No abnormal epidural or paraspinal enhancement. IMPRESSION: Impression: 1. No evidence of cervical discitis/osteomyelitis. Please see same dayMRI thoracic spine report for evaluation of the discitis/osteomyelitis at T4-T5 level. This document has been electronically signed by: Isiah Mcintyre MD on 10/15/2024 19:03:36 Apolinar Sheikh MD IM MRI PROCEDURES Final Re sult * CT Angio Chest wo and/or w Contrast (10/15/2024 1:55 PM EST) Anatomical Region Laterality Modality Body Computed Tomogra phy 10/15/2024 2:09 PM EST Impressions 10/15/2024 2:30 PM EST 1. ??No pulmonary embolism. 2. ??Degenerative changes of the vertebral endplates at C4-5 with adjacent soft tissue thickening which is suspected to be inflammatory. ??The findings are suspicious for discitis/osteomyelitis. ??Further evaluation with contrast- enhanced MRI of the thoracic spine is recommended. 3. ??Opacities at both lung bases suggestive of atelectasis. -------- FINAL REPORT -------- Dictated By: Christ Washington Dictated Date: 10/15/2024 14:09 ET Assigned Physician: Christ Washington Reviewed and Electronically Signed By: Christ Washington Signed Date: 10/15/2024 14:30 ET Workstation ID: [id number] Transcribed By: Self Edit Transcribed Date: 10/15/2024 14:09 ET Narrative 10/15/2024 2:30 PM EST PROCEDURE: CT pulmonary angiogram. HISTORY: PE suspected, low/intermediate prob, positive D-dimer. TECHNIQUE: CT of the chest with intravenous contrast administration with pulmonary angiogram protocol. ??Coronal and sagittal reformats and MIP reconstructions were created. Dose length product: ??127 mGy-cm. Contrast dose: 90 mL ISOVUE-370. COMPARISON: Same-day chest radiographs. FINDINGS: Lungs/pleura: Normal caliber central airways. ??Scattered calcified granulomas. ??Mild centrilobular emphysema. ??There are dependent confluent opacities at both bases and linear/bandlike opacities at the left base suggesting atelectasis. Mediastinum/syed: No mass. ??Mildly prominent bilateral hilar nodes. Vasculature: No pulmonary embolism. ??Scattered atherosclerotic calcifications of the aorta and great vessels. Cardiac: Normal heart size. ??No coronary artery calcification. Chest wall: No mass or adenopathy. Limited abdomen: Cholecystectomy. Bones: There are endplate destruction changes at T4-5, with prominent adjacent ill-defined paraspinous soft tissue thickening. Procedure Note Christ Washington MD - 10/15/2024 PROCEDURE: CT pulmonary angiogram. HISTORY: PE suspected, low/intermediate prob, positive D-dimer. TECHNIQUE: CT of the chest with intravenous contrast administration withpulmonary angiogram protocol. Coronal and sagittal reformats and MIPreconstructions were created. Dose length product: 127 mGy-cm. Contrast dose: 90 mL ISOVUE-370. COMPARISON: Same-day chest radiographs. FINDINGS: Lungs/pleura: Normal caliber central airways. Scattered calcifiedgranulomas. Mild centrilobular emphysema. There are dependent confluentopacities at both bases and linear/bandlike opacities at the left basesuggesting atelectasis. Mediastinum/syed: No mass. Mildly prominent bilateral hilar nodes. Vasculature: No pulmonary embolism. Scattered atheroscleroticcalcifications of the aorta and great vessels. Cardiac: Normal heart size. No coronary artery calcification. Chest wall: No mass or adenopathy. Limited abdomen: Cholecystectomy. Bones: There are endplate destruction changes at T4-5, with prominentadjacent ill-defined paraspinous soft tissue thickening. IMPRESSION: 1. No pulmonary embolism. 2. Degenerative changes of the vertebral endplates at C4-5 with adjacentsoft tissue thickening which is suspected to be inflammatory. Thefindings are suspicious for discitis/osteomyelitis. Further evaluationwith contrast-enhanced MRI of the thoracic spine is recommended. 3. Opacities at both lung bases suggestive of atelectasis. -------- FINAL REPORT -------- Dictated By: Christ Washington Dictated Date: 10/15/2024 14:09 ET Assigned Physician: Christ Washington Reviewed and Electronically Signed By: Christ Washington Signed Date: 10/15/2024 14:30 ET Workstation ID: [id number] Transcribed By: Self Edit Transcribed Date: 10/15/2024 14:09 ET us Apolinar Sheikh MD IMG CT PROCEDURES Final Res ult * XR Chest 2 Views (10/15/2024 12:29 PM EST) Anatomical Region Laterality Modality Body Radiographic Cara ging 10/15/2024 12:3 7 PM EST Impressions 10/15/2024 12:40 PM EST FINDINGS/IMPRESSION: Opacity at the left lung base may represent atelectasis or pneumonia. ??No pleural effusion or pneumothorax. ??Cardiac silhouette is normal in size. ??Degenerative changes seen throughout the bones. ??Cholecystectomy clips. -------- FINAL REPORT -------- Dictated By: MEHUL SHARMA Dictated Date: 10/15/2024 12:37 ET Assigned Physician: MEHUL SHARMA Reviewed and Electronically Signed By: MEHUL SHARMA Signed Date: 10/15/2024 12:40 ET Workstation ID: [id number] Transcribed By: Self Edit Transcribed Date: 10/15/2024 12:37 ET Narrative 10/15/2024 12:40 PM EST XR CHEST 2 VIEWS INDICATION: ??Chest pain TECHNIQUE: XR CHEST 2 VIEWS COMPARISON: 05/03/2023 Procedure Note Mehul Sharma MD - 10/15/2024 XR CHEST 2 VIEWS INDICATION: Chest pain TECHNIQUE: XR CHEST 2 VIEWS COMPARISON: 05/03/2023 IMPRESSION: FINDINGS/IMPRESSION: Opacity at the left lung base may representatelectasis or pneumonia. No pleural effusion or pneumothorax. Cardiacsilhouette is normal in size. Degenerative changes seen throughout thebones. Cholecystectomy clips. -------- FINAL REPORT -------- Dictated By: MEHUL SHARMA Dictated Date: 10/15/2024 12:37 ET Assigned Physician: MEHUL SHARMA Reviewed and Electronically Signed By: MEHUL SHARMA Signed Date: 10/15/2024 12:40 ET Workstation ID: [id number] Transcribed By: Self Edit Transcribed Date: 10/15/2024 12:37 ET us Apolinar Sheikh MD IMG XR PROCEDURES Final Res ult * (ABNORMAL) Drug abuse screen 8a panel, urine (10/15/2024 11:51 AM EST) Amphetamine Screen, Ur Negative Negative LAB CHEMISTRY METHOD 5 12:39 PM [facility] Comment:Certain OTC medicati ons containing ephedrine, phenylephrine, pseudoephedrine and phenylpropanolamine can cause false positive results. Barbiturate Screen, Ur Negative Negative LAB CHEMISTRY METHOD 5 12:39 PM [facility] Benzodiazepine Screen, Ur Negative Negative LAB CHEMISTRY METHOD 5 12:39 PM [facility] Cocaine Screen, Ur Positive(A ) Negative LAB CHEMISTRY METHOD 5 12:39 PM [facility] Opiate Screen, Ur Negative Negative LAB CHEMISTRY METHOD 5 12:39 PM [facility] Cannabinoid (THC) Screen, Ur Negative Negative LAB CHEMISTRY METHOD 5 12:39 PM [facility] Comment:Specimens from patie nts taking pantoprazole sodium (Protonix) have been shown to produce false positive results. Oxycodone Screen, Ur Negative Negative LAB CHEMISTRY METHOD 5 12:39 PM [facility] Fentanyl, Ur Positive(A ) Negative LAB CHEMISTRY METHOD 12:39 PM EST [facility] Urine Urine specimen obtained by clean catch procedure / Unknown Non-blood Collection / Unknown 10/15/2024 11:51 AM EST 10/15/2024 11:59 AM EST Narrative [facility] - 10/15/2024 12:39 PM EST Assay cutoffs: Amphetamines ? 1000 ng/mL Barbiturates ?200 ng/mL Benzodiazepines ?? 200 ng/mL Cocaine ? 300 ng/mL Fentanyl ?1 ng/mL Opiates ? 300 ng/mL Oxycodone ? 100 ng/mL THC ?50 ng/mL Semi-quantitative assay for screening purposes only. Unconfirmed screening result should not be used for non-medical purposes. *ALTERNATE METHOD CONFIRMATION DONE UPON REQUEST ONLY* Apolinar Sheikh MD LAB URINE ORDERABLES Final Result [facility] [address] [place] [address], * Troponin I high sensitivity (10/15/2024 11:34 AM EST) High Sensitivity Troponin I <3 <=54 ng/L LAB CHEMISTRY METHOD 10/15/2024 12:53 PM EST [facility] Blood Venous blood specimen / Unknown Venipuncture / Unknown 10/15/2024 11:34 AM EST 10/15/2024 11:58 AM EST Narrative [facility] - 10/15/2024 12:53 PM EST High levels of biotin in samples may falsely decrease hsTroponin values. ??Use caution when interpreting hsTroponin results in patients taking biotin who exhibit renal impairment (eGFR <60) or in patients taking more than 20 mg/day of biotin. Apolinar Sheikh MD LAB BLOOD ORDERABLES Final Result Performing Organization Address City/[facility]/ZIP Co de Phone Number [facility] [address] [place] [address], [place] [phone] * (ABNORMAL) Sedimentation rate (10/15/2024 11:34 AM EST) Sed Rate 54(H) 0 - 30 mm/hr LAB HEMETOLOGY METHOD 10/15/2024 2:47 PM EST [facility] Blood Venous blood specimen / Unknown Venipuncture / Unknown 10/15/2024 11:34 AM EST 10/15/2024 11:58 AM EST Apolinar Sheikh MD LAB BLOOD ORDERABLES Final Result Performing Organization Address [facility] Co de Phone Number [facility] [address] [place] [address], [place] [phone] * (ABNORMAL) D-dimer, quantitative (10/15/2024 11:34 AM EST) Pathologist [facility] D-Dimer, Quant (D-DU) 261(H) <=230 ng/mL DDU LAB COAGULATION METHOD 10/15/2024 12:10 PM EST [facility] Blood Venous blood specimen / Unknown Venipuncture / Unknown 10/15/2024 11:34 AM EST 10/15/2024 11:58 AM EST Narrative [facility] - 10/15/2024 12:10 PM EST D-Dimer <230 ng/mL (D-Dimer units) is the threshold for exclusion of DVT/PE. D-Dimer may be elevated in: Critically ill, severely infected, trauma patients, DIC, acute CVA, acute [place], unstable angina, AF, old age, , and smoking. D-Dimer may be decreased with: Initiation of heparin therapy and oral anticoagulants. Apolinar Sheikh MD LAB BLOOD ORDERABLES Final Result Performing Organization Address [facility] Co de Phone Number [facility] [address] [place] [address], [place] [phone] * (ABNORMAL) C-reactive protein (10/15/2024 11:34 AM EST) C-Reactive Protein 0.93(H) <=0.50 mg/dL LAB CHEMISTRY METHOD 10/15/2024 3:22 PM EST [facility] Blood Venous blood specimen / Unknown Venipuncture / Unknown 10/15/2024 11:34 AM EST 10/15/2024 11:58 AM EST Apolinar Sheikh MD LAB BLOOD ORDERABLES Final Result Performing Organization Address [facility] Co de Phone Number [facility] [address] [place] [address], [place] [phone] * ECG 12 lead (10/15/2024 10:52 AM EST) [facility] Ventricular Rate ECG 54 BPM G[facility] Atrial Rate 54 BPM GEM[facility] P-R Interval 164 ms GEMUSE QRS Duration 86 ms GEMUSE Q-T Interval 492 ms GEMUSE QTc 466 ms GEMUSE P Wave [place] 54 degrees GEMUSE R [place] 21 degrees GEMUSE T [place] 40 degrees GEMUSE ECG Interpretation Sinus bradycardia T wave abnormality, consider anterior ischemia Prolonged QT Abnormal ECG When compared with ECG of 03-MAY-2023 20:27, Nonspecific T wave abnormality now evident in Lateral leads Confirmed by MD Meliton, [place] ([id number]) on 10/16/2024 9:22:38 AM GEM[facility] 10/15/2024 10:5 2 AM EST 10/16/2024 9:22 AM EST Apolinar Sheikh MD ECG ORDERABLES Final Resul t Performing Organization Address City/[facility] Co de Phone Number [facility] * [place] [facility] 30-74 MINUTES (10/15/2024 10:30 AM EST) Narrative Apolinar Sheikh MD - 10/15/2024 10:30 AM EST Apolinar Sheikh MD ? 10/15/2024 10:30 PM Critical Care Performed by: Apolinar Sheikh MD Authorized by: Apolinar Sheikh MD ?? Critical care provider statement: ??Critical care time (minutes): ??30 ??Critical care was time spent personally by me on the following activities: ??Discussions with consultants ??I assumed direction of critical care for this patient from another provider in my specialty: no ?? Comments: ?? She required transfer to for definitive neurosurgical care. ??Quired multiple doses of IV narcotics for pain control. us Apolinar Sheikh MD IN CLINIC/BEDSIDE ORDERABLE S Final Result * ECG-Annotated (10/15/2024) us Provider Onbase ECG ORDERABLES Final Result from Last 3 Months Insurance MEDICAID - [place] Advance Directives Documents on File Type Date Recorded Patient Butcher Expl anation Advance Directives and Living Will 10/29/2024 3:09 PM Clarissa Lovett Health Care Proxy * Full Code - Default (Latest Code Status on File) Date Activated Date Inactivated Comments 10/26/2024 5:28 PM 10/31/2024 6:10 PM This is order is used when code status has not been discussed with the patient, or code status is otherwise unknown/unconfirmed To update the patient's code status, place a code status order. Do not modify or discontinue any currently active code status orders. * Full Code - Default Date Activated Date Inactivated Comments 10/16/2024 1:06 PM 10/26/2024 5:16 PM This is order is used when code status has not been discussed with the patient, or code status is otherwise unknown/unconfirmed To update the patient's code status, place a code status order. Do not modify or discontinue any currently active code status orders. Healthcare Agents on File Name Relationship Healthcare Agent Relationshi p Communication Loren Lovett Mother [facility] Health Ca re Agent Clarissa Hi Sister [facility] Health Care Agent Care Teams Varnisher Apprentice Relationship Specialty Start Date End Date Physician, No Pcp PCP - General 10/15/24
--- OUTSIDE RECORDS SUMMARY | 2024-12-19 09:51 | XMS_ITS ---
Author Organization [facility] Address [address] [place], [place] [id number] Care Team Providers Care Rabble Furnace Tender Name Role Phone [facility], Acute Trauma Care [facility] Care Provider Unavailable Marcelle Nunez Unavailable REASON FOR VISIT help rehabilitation program Encounters Encounter Location Date Provider Diagnosis [facility] [address] [place] [phone] 12/09/2024 Marcelle Nunez Plan Of Treatment No Information Progress Notes * Mar PINEDAeDOB: 0 (54 yo F)Acc No.[id number]:12/09/2024 Case Management Patient:?Sadie PINEDA Provider:?Marcelle Nunez :1970???Age:54 Y???Sex:Female D ate:12/09/2024 Address:[address] [facility] Pcp:Acute Trauma Care [facility] Subjective: * Chief Complaints: * ???1. Help rehabilitation pr ogram. * HPI: ???Social Service:?Date of encounter?12/09/2024.?Referral Source?walk-in, self.?Interpretation for medical provider??refferal Substance Abuse program.?Advocacy?Phone call(s) to Detox.?Follow-up Required:?yes.?Pt comprehension Pt agrees with plan, Patient understood process and assisted with process.?Action taken (old)?form completion, Items given to client, item obtained, Letter given to patient after photo copy made.? * Medical History:? Objective: * Vitals:? Assessment: Plan: * Treatment: * Images: Billing Information: * Visit Code:? * Procedure Codes:? Care Plan Details* * Sign off status: Completed true * Provider:?Marcelle Nunez Date:? Generated for Giles downey/Sonia/Osmar on:?12/19/2024 09:50 AM EDT History and Physical Notes * HPI (History of Present Illness) Category Sub-Category Detail Notes Social Service Referral Source walk-in, self Interpretation for medical provider reff eral Substance Abuse program Action taken (old) form completion, Ite ms given to client, item obtained, Letter given to patient after photo copy made Advocacy Phone call(s) to Det ox Follow-up Required: yes Pt comprehension Pt agrees with plan, Patient understood process and assisted with process Date of encounter 12/09/2024
--- OUTSIDE RECORDS SUMMARY | 2024-12-19 09:51 | XMS_ITS ---
Author Organization [facility] Address [address] [place], [place] [phone] Care Team Providers Care Sales Support Administrator Name Role Phone [facility], Acute Trauma Care [facility] Care Provider Unavailable Marcelle Nunez Unavailable [phone] REASON FOR VISIT New Intake Encounters Encounter Location Date Provider Diagnosis [facility] [address] [place] [id number] 12/06/2024 Marcelle Nunez Plan Of Treatment No Information Progress Notes * Mar PINEDAeDOB: 0 (54 yo F)Acc No.[id number]:12/06/2024 Case Management Patient:?Sadie PINEDA Provider:?Marcelle Nunez :1970???Age:54 Y???Sex:Female D ate:12/06/2024 Address:[address], [facility] Pcp:Acute Trauma Care [facility] Subjective: * Chief Complaints: * ???1. New Intake. * HPI: ???Social Service:?Date of encounter?12/06/2024.?Referral Source?walk-in, self.?Interpretation for medical provider?New Intake, Mail Intake,housing.?Advocacy?none.?Follow-up Required:?yes.?Pt comprehension?Pt agrees with plan, Patient understood process and assisted with process.?Action taken (old)?form completion, Items given to client, item obtained, Letter given to patient after photo copy made.? * Medical History:? Objective: * Vitals:? Assessment: Plan: * Treatment: * Images: Billing Information: * Visit Code:? * Procedure Codes:? Care Plan Details* * Sign off status: Completed true * Provider:Rl Nunez Date:? Generated for Giles downey/Sonia/Osmar on:?12/19/2024 09:51 AM EDT History and Physical Notes * HPI (History of Present Illness) Category Sub-Category Detail Notes Social Service Referral Source walk-in, self Interpretation for medical provider New Intake, Mail Intake,housing Action taken (old) form completion, Ite ms given to client, item obtained, Letter given to patient after photo copy made Advocacy none Follow-up Required: yes Pt comprehension Pt agrees with plan, Patient understood process and assisted with process Date of encounter 12/06/2024
--- OUTSIDE RECORDS SUMMARY | 2024-12-19 09:51 | XMS_ITS ---
Author Organization [facility] Address [address] [place], [place] [phone] Care Team Providers Care Printing Table Hand Name Role Phone [facility], Acute Trauma Care [facility] Care Provider Unavailable Marcelle Nunez Unavailable REASON FOR VISIT requests information programs Encounters Encounter Location Date Provider Diagnosis [facility] [address] [place] [phone] 12/16/2024 Marcelle Nunez Plan Of Treatment No Information Progress Notes * Mar PINEDAeDOB: 0 (54 yo F)Acc No.[id number]:12/16/2024 Case Management Patient:?Sadie PINEDA Provider:?Marcelle Nunez :1970???Age:54 Y???Sex:Female D ate:12/16/2024 Address:[address] [facility] Pcp:Acute Trauma Care [facility] Subjective: * Chief Complaints: * ???1. Requests information mario ding. * HPI: ???Social Service:?Date of encounter?12/16/2024.?Referral Source?walk-in, self.?Interpretation for medical provider?Substance Abuse, referral in.?Advocacy?none.?Follow-up Required:?yes.?Pt comprehension?Pt agrees with plan, Patient understood [...] Source walk-in, self Interpretation for medical provider Subs tance Abuse, referral in Action taken (old) form completion, Ite ms given to client, item obtained, Letter given to patient after photo copy made Advocacy none Follow-up Required: yes Pt comprehension Pt agrees with plan, Patient understood process and assisted with process Date of encounter 12/16/2024
--- OUTSIDE RECORDS SUMMARY | 2024-12-19 09:52 | XMS_ITS ---
Author Name [facility] Organization Unknown Results Test Name/Text Value Interpretation Date Range Source Glucose Bld-mCnc 102mg/dL Normal [id number] 70 - 199 [facility] Glucose Bld-mCnc 92mg/dL Normal [id number] 70 - 199 [facility] Glucose Bld-mCnc 139mg/dL Normal [id number] 70 - 199 [facility] AST SerPl-cCnc 14unit/L Normal [id number] 5 - 40 [facility] ALT SerPl-cCnc 5unit/L Below low normal [id number] 7 - 5 2 [facility] Creat SerPl-mCnc 0.7mg/dL Normal [id number] 0.5 - 1 [facility] CO2 SerPl-sCnc 23mmol/L Below low normal [id number] 24 - 32 [facility] eGFRcr SerPlBld CKD-EPI 2020 103mL/min/1.73 m2 Normal [id number] - [facility] Potassium SerPl-sCnc 4.1mmol/L Normal [id number] 3.5 - 5.1 [facility] Bilirub SerPl-mCnc 0.3mg/dL Normal [id number] 0.3 - 1 [facility] Calcium SerPl-mCnc 9.2mg/dL Normal [id number] 8.4 - 10 .2 [facility] BUN SerPl-mCnc 19mg/dL Above high normal [id number] 7 - 17 [facility] ALP SerPl-cCnc 88unit/L Normal [id number] 34 - 104 [facility] Chloride SerPl-sCnc 105mmol/L Normal [id number] 98 - 10 7 [facility] BUN/Creat SerPl 27.1 Above high normal [id number] 12 - 20 [facility] Albumin SerPl-mCnc 3.4g/dL Below low normal [id number] 3 .5 - 5 [facility] Prot SerPl-mCnc 7.2g/dL Normal 6.4 - 8.5 [facility] Sodium SerPl-sCnc 137mmol/L Normal [id number] 135 - 145 [facility] Anion Gap SerPl-sCnc 9 Normal 5 - 14 [facility] Glucose SerPl-mCnc 81mg/dL Normal 70 - 99 [facility] Magnesium SerPl-mCnc 1.9mg/dL Normal [id number] 1.7 - 2.8 [facility] Monocytes # Bld Auto 0.7K/mcL Normal [id number] 0 - 0.8 [facility] Neutrophils # Bld Auto 2.7K/mcL Normal [id number] 1.8 - 7.8 [facility] Eosinophil # Bld Auto 0.1K/mcL Normal [id number] 0 - 0.5 [facility] MCHC RBC Auto-mCnc 33.6g/dL Normal [id number] 32 - 36 [facility] Monocytes/leuk NFr Bld Auto 13.5% Above high normal [id number] 2 - 12 [facility] Basophils # Bld Auto 0K/mcL Normal [id number] 0 - 0.2 [facility] WBC # Bld Auto 4.9K/mcL Normal [id number] 4 - 10.5 [facility] Hct VFr Bld Auto 33.7% Below low normal [id number] 37 - 47 [facility] RDW RBC Auto-Rto 14.3% Normal [id number] 12.1 - 16.2 [facility] PMV Bld Auto 8.2FL Normal 7.4 - 11.4 [facility] Eosinophil/leuk NFr Bld Auto 2.4% Normal [id number] 0 - 6 [facility] MCH RBC Qn Auto 28.1pcg Normal 25 - 33 [facility] Basophils/leuk NFr Bld Auto 0.7% Normal [id number] 0 - 2 [facility] Lymphocytes # Bld Auto 1.4K/mcL Normal 1 - 3.2 [facility] RBC # Bld Auto 4.03M/mcL Below low normal [id number] 4.2 - 5.4 [facility] Neutrophils/leuk NFr Bld Auto 54.2% Normal 44 - 74 [facility] Platelet # Bld Auto 249K/mcL Normal 150 - 4 50 [facility] MCV RBC Auto 83.7FL Normal 78 - 100 [facility] Lymphocytes/leuk NFr Bld Auto 29.2% Normal 20 - 48 [facility] Hgb Bld-mCnc 11.3g/dL Below low normal 12.5 - 16 [facility] Magnesium SerPl-mCnc 1.9mg/dL Normal 1.7 - 2.8 [facility] AST SerPl-cCnc 15unit/L Normal 5 - 40 [facility] ALT SerPl-cCnc 7unit/L Normal 7 - 52 [facility] Creat SerPl-mCnc 0.6mg/dL Normal 0.5 - 1 [facility] CO2 SerPl-sCnc 27mmol/L Normal 24 - 32 [facility] eGFRcr SerPlBld CKD-EPI 2020 107mL/min/1.73 m2 Normal - [facility] Potassium SerPl-sCnc 4.2mmol/L Normal 3.5 - 5.1 [facility] Bilirub SerPl-mCnc 0.3mg/dL Normal 0.3 - 1 [facility] Calcium SerPl-mCnc 9.2mg/dL Normal 8.4 - 10 .2 [facility] BUN SerPl-mCnc 25mg/dL Above high normal 7 - 17 [facility] ALP SerPl-cCnc 92unit/L Normal 34 - 104 [facility] Chloride SerPl-sCnc 103mmol/L Normal 98 - 10 7 [facility] BUN/Creat SerPl 41.7 Above high normal 12 - 20 [facility] Albumin SerPl-mCnc 3.5g/dL Normal 3.5 - 5 [facility] Prot SerPl-mCnc 7.4g/dL Normal 6.4 - 8.5 [facility] Sodium SerPl-sCnc 137mmol/L Normal 135 - 145 [facility] Anion Gap SerPl-sCnc 7 Normal 5 - 14 [facility] Glucose SerPl-mCnc 86mg/dL Normal 70 - 199 [facility] Monocytes # Bld Auto 0.7K/mcL Normal 0 - 0.8 [facility] Neutrophils # Bld Auto 3.2K/mcL Normal 1.8 - 7.8 [facility] Eosinophil # Bld Auto 0.1K/mcL Normal 0 - 0.5 [facility] MCHC RBC Auto-mCnc 33.6g/dL Normal 32 - 36 [facility] Monocytes/leuk NFr Bld Auto 12.4% Above high normal 2 - 12 [facility] Basophils # Bld Auto 0K/mcL Normal 0 - 0.2 [facility] WBC # Bld Auto 5.3K/mcL Normal 4 - 10.5 [facility] Hct VFr Bld Auto 33.7% Below low normal 37 - 47 [facility] RDW RBC Auto-Rto 14.5% Normal 12.1 - 16.2 [facility] PMV Bld Auto 8FL Normal 7.4 - 11.4 [facility] Eosinophil/leuk NFr Bld Auto 1.6% Normal 0 - 6 [facility] MCH RBC Qn Auto 28pcg Normal 25 - 33 [facility] Basophils/leuk NFr Bld Auto 0.6% Normal 0 - 2 [facility] Lymphocytes # Bld Auto 1.3K/mcL Normal 1 - 3.2 [facility] RBC # Bld Auto 4.03M/mcL Below low normal 4.2 - 5.4 [facility] Neutrophils/leuk NFr Bld Auto 61.3% Normal 44 - 74 [facility] Platelet # Bld Auto 258K/mcL Normal 150 - 4 50 [facility] MCV RBC Auto 83.4FL Normal 78 - 100 [facility] Lymphocytes/leuk NFr Bld Auto 24.1% Normal 20 - 48 [facility] Hgb Bld-mCnc 11.3g/dL Below low normal 12.5 - 16 [facility] Vancomycin Trough SerPl-mCnc 12.3mcg/mL Normal 10 - 20 [facility] Benzodiaz Ur Ql Scn Negative Normal - [facility] fentaNYL Ur Ql Positive Abnormal - [facility] Barbiturates Ur Ql Scn Negative Normal - [facility] oxyCODONE Ur Ql Scn Negative Normal - [facility] Cannabinoids Ur Ql Scn Negative Normal - [facility] BZE Ur Ql Scn Negative Normal - [facility] Amphet Ur Ql Scn Negative Normal - [facility] PCP Ur Ql Scn Negative Normal - [facility] Opiates Ur Ql Scn Negative Normal - [facility] Monocytes # Bld Auto 0.8K/mcL Normal 0 - 0.8 [facility] Neutrophils # Bld Auto 4.7K/mcL Normal [id number] 1.8 - 7.8 [facility] Eosinophil # Bld Auto 0.1K/mcL Normal [id number] 0 - 0.5 [facility] MCHC RBC Auto-mCnc 33.3g/dL Normal [id number] 32 - 36 [facility] Monocytes/leuk NFr Bld Auto 11.1% Normal [id number] 2 - 12 [facility] Basophils # Bld Auto 0.1K/mcL Normal [id number] 0 - 0.2 [facility] WBC # Bld Auto 7.3K/mcL Normal [id number] 4 - 10.5 [facility] Hct VFr Bld Auto 32.9% Below low normal [id number] 37 - 47 [facility] RDW RBC Auto-Rto 14.7% Normal [id number] 12.1 - 16.2 [facility] Eosinophil/leuk NFr Bld Auto 1.6% Normal [id number] 0 - 6 [facility] MCH RBC Qn Auto 28.1pcg Normal [id number] 25 - 33 [facility] Basophils/leuk NFr Bld Auto 0.9% Normal [id number] 0 - 2 [facility] Lymphocytes # Bld Auto 1.6K/mcL Normal [id number] 1 - 3.2 [facility] RBC # Bld Auto 3.89M/mcL Below low normal [id number] 4.2 - 5.4 [facility] Neutrophils/leuk NFr Bld Auto 64.5% Normal [id number] 44 - 74 [facility] Platelet # Bld Auto Normal [id number] [facility] MCV RBC Auto 84.5FL Normal [id number] 78 - 100 [facility] Lymphocytes/leuk NFr Bld Auto 21.9% Normal [id number] 20 - 48 [facility] Hgb Bld-mCnc 11g/dL Below low normal [id number] 12.5 - 16 [facility] AST SerPl-cCnc 16unit/L Normal [id number] 5 - 40 [facility] ALT SerPl-cCnc 5unit/L Below low normal [id number] 7 - 5 2 [facility] Creat SerPl-mCnc 0.7mg/dL Normal [id number] 0.5 - 1 [facility] CO2 SerPl-sCnc 23mmol/L Below low normal [id number] 24 - 32 [facility] eGFRcr SerPlBld CKD-EPI 2020 103mL/min/1.73 m2 Normal [id number] - [facility] Potassium SerPl-sCnc 4mmol/L Normal [id number] 3.5 - 5.1 [facility] Bilirub SerPl-mCnc 0.4mg/dL Normal [id number] 0.3 - 1 [facility] Calcium SerPl-mCnc 9.2mg/dL Normal [id number] 8.4 - 10 .2 [facility] BUN SerPl-mCnc 25mg/dL Above high normal [id number] 7 - 17 [facility] ALP SerPl-cCnc 85unit/L Normal [id number] 34 - 104 [facility] Chloride SerPl-sCnc 105mmol/L Normal [id number] 98 - 10 7 [facility] BUN/Creat SerPl 35.7 Above high normal [id number] 12 - 20 [facility] Albumin SerPl-mCnc 3.5g/dL Normal [id number] 3.5 - 5 [facility] Prot SerPl-mCnc 7.3g/dL Normal [id number] 6.4 - 8.5 [facility] Sodium SerPl-sCnc 138mmol/L Normal [id number] 135 - 145 [facility] Anion Gap SerPl-sCnc 10 Normal [id number] 5 - 14 [facility] Glucose SerPl-mCnc 94mg/dL Normal [id number] 70 - 199 [facility] Magnesium SerPl-mCnc 1.9mg/dL Normal [id number] 1.7 - 2.8 [facility] Magnesium SerPl-mCnc 1.7mg/dL Normal [id number] 1.7 - 2.8 [facility] AST SerPl-cCnc 15unit/L Normal [id number] 5 - 40 [facility] ALT SerPl-cCnc 7unit/L Normal [id number] 7 - 52 [facility] Creat SerPl-mCnc 0.7mg/dL Normal [id number] 0.5 - 1 [facility] CO2 SerPl-sCnc 24mmol/L Normal [id number] 24 - 32 [facility] eGFRcr SerPlBld CKD-EPI 2020 103mL/min/1.73 m2 Normal [id number] - [facility] Potassium SerPl-sCnc 3.7mmol/L Normal [id number] 3.5 - 5.1 [facility] Bilirub SerPl-mCnc 0.9mg/dL Normal [id number] 0.3 - 1 [facility] Calcium SerPl-mCnc 9.1mg/dL Normal [id number] 8.4 - 10 .2 [facility] BUN SerPl-mCnc 18mg/dL Above high normal [id number] 7 - 17 [facility] ALP SerPl-cCnc 82unit/L Normal [id number] 34 - 104 [facility] Chloride SerPl-sCnc 103mmol/L Normal [id number] 98 - 10 7 [facility] BUN/Creat SerPl 25.7 Above high normal [id number] 12 - 20 [facility] Albumin SerPl-mCnc 3.5g/dL Normal [id number] 3.5 - 5 [facility] Prot SerPl-mCnc 7.6g/dL Normal [id number] 6.4 - 8.5 [facility] Sodium SerPl-sCnc 136mmol/L Normal [id number] 135 - 145 [facility] Anion Gap SerPl-sCnc 9 Normal [id number] 5 - 14 [facility] Glucose SerPl-mCnc 84mg/dL Normal [id number] 70 - 199 [facility] Monocytes # Bld Auto 0.7K/mcL Normal [id number] 0 - 0.8 [facility] Neutrophils # Bld Auto 5.9K/mcL Normal [id number] 1.8 - 7.8 [facility] Eosinophil # Bld Auto 0K/mcL Normal [id number] 0 - 0.5 [facility] MCHC RBC Auto-mCnc 33.7g/dL Normal [id number] 32 - 36 [facility] Monocytes/leuk NFr Bld Auto 9% Normal [id number] 2 - 12 [facility] Basophils # Bld Auto 0K/mcL Normal [id number] 0 - 0.2 [facility] WBC # Bld Auto 8K/mcL Normal [id number] 4 - 10.5 [facility] Hct VFr Bld Auto 32.7% Below low normal [id number] 37 - 47 [facility] RDW RBC Auto-Rto 14.7% Normal [id number] 12.1 - 16.2 [facility] PMV Bld Auto 7.7FL Normal [id number] 7.4 - 11.4 [facility] Eosinophil/leuk NFr Bld Auto 0.4% Normal [id number] 0 - 6 [facility] MCH RBC Qn Auto 28.1pcg Normal [id number] 25 - 33 [facility] Basophils/leuk NFr Bld Auto 0.3% Normal [id number] 0 - 2 [facility] Lymphocytes # Bld Auto 1.3K/mcL Normal [id number] 1 - 3.2 [facility] RBC # Bld Auto 3.91M/mcL Below low normal [id number] 4.2 - 5.4 [facility] Neutrophils/leuk NFr Bld Auto 74.3% Above high normal [id number] 44 - 74 [facility] Platelet # Bld Auto 257K/mcL Normal [id number] 150 - 4 50 [facility] MCV RBC Auto 83.5FL Normal [id number] 78 - 100 [facility] Lymphocytes/leuk NFr Bld Auto 16% Below low normal [id number] 20 - 48 [facility] Hgb Bld-mCnc 11g/dL Below low normal [id number] 12.5 - 16 [facility] Glucose Bld-mCnc 100mg/dL Normal 70 - 199 [facility] AST SerPl-cCnc 17unit/L Normal [id number] 5 - 40 [facility] ALT SerPl-cCnc 3unit/L Below low normal [id number] 7 - 5 2 [facility] Creat SerPl-mCnc 0.8mg/dL Normal [id number] 0.5 - 1 [facility] CO2 SerPl-sCnc 24mmol/L Normal [id number] 24 - 32 [facility] eGFRcr SerPlBld CKD-EPI 2020 88mL/min/1.73m 2 Normal - [facility] Potassium SerPl-sCnc 4.4mmol/L Normal [id number] 3.5 - 5.1 [facility] Bilirub SerPl-mCnc 0.7mg/dL Normal [id number] 0.3 - 1 [facility] Calcium SerPl-mCnc 9.8mg/dL Normal [id number] 8.4 - 10 .2 [facility] BUN SerPl-mCnc 22mg/dL Above high normal [id number] 7 - 17 [facility] ALP SerPl-cCnc 97unit/L Normal [id number] 34 - 104 [facility] Chloride SerPl-sCnc 101mmol/L Normal [id number] 98 - 10 7 [facility] BUN/Creat SerPl 27.5 Above high normal [id number] 12 - 20 [facility] Albumin SerPl-mCnc 4.1g/dL Normal 3.5 - 5 [facility] Prot SerPl-mCnc 8.5g/dL Normal [id number] 6.4 - 8.5 [facility] Sodium SerPl-sCnc 136mmol/L Normal [id number] 135 - 145 [facility] Anion Gap SerPl-sCnc 11 Normal 5 - 14 [facility] Glucose SerPl-mCnc 85mg/dL Normal 70 - 199 [facility] Procalcitonin SerPl-mCnc 0.05ng/mL Normal - [facility] Magnesium SerPl-mCnc 1.9mg/dL Normal [id number] 1.7 - 2.8 [facility] Monocytes # Bld Auto 0.4K/mcL Normal [id number] 0 - 0.8 [facility] Neutrophils # Bld Auto 9K/mcL Above high normal [id number] 1.8 - 7.8 [facility] Eosinophil # Bld Auto 0K/mcL Normal 0 - 0.5 [facility] MCHC RBC Auto-mCnc 33.5g/dL Normal [id number] 32 - 36 [facility] Monocytes/leuk NFr Bld Auto 3.8% Normal 2 - 12 [facility] Basophils # Bld Auto 0K/mcL Normal 0 - 0.2 [facility] WBC # Bld Auto 10.4K/mcL Normal [id number] 4 - 10.5 [facility] Hct VFr Bld Auto 37.5% Normal 37 - 47 [facility] RDW RBC Auto-Rto 14.7% Normal [id number] 12.1 - 16.2 [facility] PMV Bld Auto 8FL Normal [id number] 7.4 - 11.4 [facility] Eosinophil/leuk NFr Bld Auto 0.1% Normal 0 - 6 [facility] MCH RBC Qn Auto 28.4pcg Normal [id number] 25 - 33 [facility] Basophils/leuk NFr Bld Auto 0.2% Normal 0 - 2 [facility] Lymphocytes # Bld Auto 1K/mcL Normal 1 - 3.2 [facility] RBC # Bld Auto 4.43M/mcL Normal 4.2 - 5.4 [facility] Neutrophils/leuk NFr Bld Auto 86.3% Above high normal 44 - 74 [facility] Platelet # Bld Auto 265K/mcL Normal 150 - 4 50 [facility] MCV RBC Auto 84.8FL Normal [id number] 78 - 100 [facility] Lymphocytes/leuk NFr Bld Auto 9.6% Below low normal [id number] 20 - 48 [facility] Hgb Bld-mCnc 12.6g/dL Normal [id number] 12.5 - 16 [facility] INR PPP 1.1 Normal 0.8 - 1.1 [facility] PT Bld 12.6sec Normal 10.5 - 13.3 [facility] LACTIC ACID 1.5mmol/L Normal 0.5 - 2.2 [facility] History of Medication Use Medication Directions Dispensed Refills Start Date End Date Stat senna-docusate (PERICOLACE) 8.6-50 mg per tablet 1 tablet 1 tablet, oral, 2 times daily, First dose on Mon10/19/24 at 1215 10/19/2024 active acetaminophen (TYLENOL) tablet 650 mg 650 mg, oral, Every 6 hours PRN, mild pain, Starting on Mon10/16/24 at 1317 10/16/2024 active sodium chloride 0.9 % infusion 100 mL/hr, intravenous, Continuous, Starting on Mon10/16/24 at 1345 10/16/2024 5 aborted HYDROmorphone (DILAUDID) injection 1 mg 1 mg, intravenous, Every 4 hours PRN, severe pain, Starting on Mon10/16/24 at 1449 10/16/2024 5 aborted cefTRIAXone (ROCEPHIN) 1 g in sterile water 10 mL IV syringe 1 g, intravenous, at 200 mL/hr, Administer over 3 Minutes, Every 24 hours, First dose on Mon10/16/24 at 1345, For 7 days, Do not administer simultaneously with any calcium containing solutions via a Y-site in any patient., Indication: Sepsis, Suspected source: Disciti/OM T4/T5 10/16/2024 5 aborted vancomycin (VANCOCIN) 1,000 mg in sodium chloride 0.9 % 250 mL IVPB 1,000 mg, intravenous, at 250 mL/hr, Administer over 60 Minutes, Every 12 hours, First dose (after last modification) on Mon10/18/24 at 2145, For 11 doses, Indication: Bone/Joint 10/19/2024 aborted ceFAZolin (ANCEF) 2 g in sterile water 20 mL IV syringe 2 g, intravenous, Administer over 3 Minutes, Every 8 hours, First dose on Mon10/21/24 at 1415, For 38 days, Indication: Bone/Joint 10/16/2024 active fentaNYL (PF) (SUBLIMAZE) injection intravenous, As needed, Starting on Mon10/18/24 at 1559, Intraprocedure 10/18/2024 5 completed hydrOXYzine HCL (ATARAX) tablet 25 mg 25 mg, oral, 3 times daily PRN, anxiety, Starting on Mon10/16/24 at 1438 10/09/2024 active cloNIDine (CATAPRES) tablet 0.1 mg 11/16/2023 active midazolam (VERSED) injection intravenous, As needed, Starting on Mon10/18/24 at 1559, Intraprocedure 10/18/2024 completed HYDROmorphone (DILAUDID) injection 0.5 mg 0.5 mg, intravenous, Every 4 hours PRN, severe pain, Starting on Sandhya 10/17/24 at 0923 10/16/2024 aborted polyethylene glycol (MIRALAX) packet 17 g 17 g, oral, Daily PRN, constipation, Starting on 10/19/24 at 1148 10/19/2024 active sodium chloride 0.9 % infusion intravenous, Continuous PRN, Starting on Mon10/18/24 at 1559, Intraprocedure 10/18/2024 completed nicotine (NICODERM CQ) 7 mg/24 hr 1 patch 1 patch, transdermal, Administer over 24 Hours, Daily, First dose on Mon10/16/24 at 1345 10/16/2024 active sertraline (ZOLOFT) tablet 25 mg 25 mg, oral, Daily, First dose on 10/16/24 at 1500 10/09/2024 active ceFAZolin 2 g in sterile water 20 mL syringe Infuse 2 g into a venous catheter every 8 (eight) hours. 10/24/2024 active enoxaparin (LOVENOX) injection 40 mg 40 mg, subcutaneous, Every 24 hours scheduled, First dose on 10/19/24 at 1615, Indication: VTE/PE Prophylaxis 10/19/2024 active methadone (DOLOPHINE) 10 mg/mL concentrated solution Take 7 mL (70 mg total) by mouth 1 (one) time each day. Max Daily Amount: 70 mg 10/17/2024 active ibuprofen (ADVIL,MOTRIN) tablet 400 mg 400 mg, oral, Every 6 hours PRN, moderate pain, Starting on Sandhya 10/17/24 at 0925, Administer with food or milk to decrease GI upset 10/17/2024 active Problems Problem Status Onset Date Problem Type Date of Resoluti on Source Osteomyelitis active 2024-10-16 [address] [facility] Encounters Encounter Type Encounter Reason Primary Diagnosis Location Date Inpatient Paravertebral Abscess Osteomyeli tis, unspecified [facility] 10/16/2024 Care Team Organization Name Specialty Phone Email Start Date End Da te [facility] PHYSICIAN Primary Care 11/27/2024 [facility] NO PHYSICIAN Primary Care 10/16/2024
--- NOTE | 2024-12-19 10:02 | ED_ITS ---
HPI - Medical Clearance General Chief complaint: Medical Clearance Stated complaint: drug test Time Seen by Provider: 12/19/24 09:18 Source: patient Mode of arrival: ambulatory Limitations: no limitations History of Present Illness ED Provider: URIEL COX PA-C HPI Narrative: 54 year old female with pmhx significant for substance abuse on methadone presents to the ED today requesting a urine drug test. She has a bed at the [facility]. The facility is requesting that she come to the ED for a drug test prior to entering the program. She states she is on methadone. She denies any other illicit substance use. Denies any physical concerns at this time. Maris chest pain or palpitations. Related Information Allergies Allergy/AdvReac Type Severity Reaction Status Date / Time No Known Allergies Allergy Verified 12/19/24 08:54 Review of Systems Review of Systems: Yes all other systems are reviewed and are negative FORMERLY [facility], [facility] Past Medical History Attestation statement: The following information was validated with the patient. Source: old records reviewed and nursing notes reviewed Social History Social History Advance Directives: No Advance Directives Information Provided: Yes Do you have a plan to hurt others: No Plan Physical Exam Vital Signs: Vital Signs: Last Vital Signs Temp 97.3 F 12/19/24 08:52 Pulse 58 12/19/24 08:52 Resp 20 12/19/24 08:52 BP 116/44 L 12/19/24 08:52 Pulse Ox 98 12/19/24 08:52 O2 Del Method Room Air 12/19/24 08:52 BMI result Body Mass Index 20.9 vital signs stable General: Well appearing, in no acute distress. Skin: Warm, dry, intact. No rashes or lesions. Head: Normocephalic, atraumatic. EENT: Hearing is intact b/l. Conjunctiva clear. PERRLA. EOM intact. Moist mucous membranes.? Cardiac: Chest wall symmetric. RRR Lungs: Normal respiratory effort without accessory muscle use. CTA bilaterally Abdomen: Soft, non-tender, non-distended. No rebound tenderness or guarding Back: No midline spinous or paraspinal tenderness. No step off deformity. Ext: Upper and lower extremities atraumatic, without tenderness, deformity, swelling or erythema Neuro: AOx3. Normal speech. Ambulating with steady gait. Psych: Appropriate mood and affect. Responds appropriately to questions. Course Course Course Narrative: Urine tox positive for methadone, otherwise negative. Reiterated that this urine collection was not monitored. Patient has remained stable throughout ED visit [facility]. Discussed worrisome signs and symptoms and when to return to the ED. All questions answered at this time. Patient is agreeable with disposition and stable for discharge. Medical Decision Making Medical Decision Making [facility] Narrative: 54 year old female with pmhx significant for substance abuse on methadone presents to the ED today requesting a urine drug test. she has no physical concerns. her physical exam is benign. I did inform patient that urine collection is not monitored in ED and that her facility may require her to go to an established drug testing facility where this is actually monitored. she verbalized understanding. plan for urine drug screen and discharge. Differential Diagnosis Differential Diagnoses: The differential diagnosis associated with the presentation includes as above. Admission/Observation not indicated Lab Data [facility] Lab Attestation statement: I reviewed the patient's lab results. as above. Labs: Lab Results 12/19/24 Range/Units 09:05 Urine Opiates Screen Not Detected (Not Detect) Ur Buprenorphine Scrn Not Detected (Not Detect) ng/mL Ur Oxycodone Screen Not Detected (Not Detect) ng/mL Urine Methadone Screen Positive H (Not Detect) ng/mL Urine Fentanyl Screen Not Detected (Not Detect) Ur Barbiturates Screen Not Detected (Not Detect) Ur Phencyclidine Scrn Not Detected (Not Detect) Ur Amphetamines Screen Not Detected (Not Detect) U Benzodiazepines Scrn Not Detected (Not Detect) Urine Cocaine Screen Not Detected (Not Detect) U Marijuana (THC) Screen Not Detected (Not Detect) Social Determinants Patient?s care significantly limited by Social Determinants of Health including: Other Social Determinant of Health Critical Care Time Critical Care Time Critical Care Time: No Discharge Plan Discharge Clinical Impression: Encounter for drug screening Patient Disposition: Home, Self-Care Instructions: Methadone (By mouth) Additional Instructions: You presented to the ED today requesting a drug screen. Your drug screen is positive for methadone. Otherwise negative for any other substance. Please note, this urine collection was not monitored in the ED today. The facility may require you to have repeat testing at an established drug testing facility where urine collection is monitored. Please return with any new or worsening symptoms. In the case of an emergency call 911. Referrals: [place],[facility] [Primary Care Provider] - Discharge Date/Time: 12/19/24 10:10 Print Language: Spanish
--- NOTE | 2024-12-19 10:09 | PC.NURSE ---
Pt here to just receive a urine drug test for placement. urine done, DC in, results went over with pt.
[2024-12-19 10:10] VITALS: BP 116/44; PULSE 58; RESP 20; TEMP 36.3; O2SAT 98
== END 2024-12-19 10:10 | disposition home or self-care (01) ==
PROVIDERS: Emergency Provider Emergency Medicine; PCP Dentist General Practice
DX: Z02.2 Encounter for examination for admission to residential institution (principal); F11.20 Opioid dependence, uncomplicated
CPT/HCPCS: 80307; 99282